=== PATIENT | female | born 1945 | race Caucasian/White ===

== ENCOUNTER → 2016-09-24 | Outpatient (CLI) | payer MEDICARE, BC ==
--- NOTE | 2016-09-24 10:32 | CT ---
EXAMINATION TYPE: CT chest wo con DATE OF EXAM: 09/24/2016 COMPARISON: 09/27/2015 HISTORY: 70-year-old female history of Lung CA TECHNIQUE: Contiguous axial scanning of the chest without IV contrast. Coronal and sagittal reconstru ctions performed. CT DLP: 162.3 mGycm Automated exposure control for dose reduction was used. FINDINGS: Stable ovoid calcification in the right axilla and some calcification or surgical material deeper in the right axilla likely relate to into prior breast cancer treatment. The heart is upper limits of normal in size without pericardial effusion. Coronary vessel calcificati ons are present in remarkable for coronary artery disease. Aorta is normal-caliber with a conventional arch vessel branching anatomy. Lack of IV contrast limits assessment of the mediastinal and hilar structures. No obvious lymphadenop athy seen. Of enlarged lymph nodes in the right hilum be difficult to exclude. There is chronic consolidation and volume loss involving the left upper lobe and scattered paraseptal emphysematous change. Some patchy atelectasis at the left base and along the dependent portions of t he lungs. There is new rounded area of consolidation within the anterior right upper lobe abutting the mediasti num measuring 3.6 cm wide by 4.0 cm AP by 4.4 cm craniocaudal. No pleural effusion. Visualized upper abdomen shows stable calcified granuloma in the spleen. Cholecystectomy clips. Bones: No osseous destructive process. Degenerative changes at the right shoulder. Suggestion of old healed fracture deformities involving a few of the right lateral ribs. Stable mild compression deformity of the T3 vertebral body. IMPRESSION: 1. COPD WITH CHRONIC VOLUME LOSS/POSTTREATMENT CHANGE INVOLVING THE LEFT UPPER LOBE. 2. NEW 4.4 CM MEDIAL RIGHT UPPER LOBE MASSLIKE OPACITY. IN THE ABSENCE OF INFECTIOUS SIGNS/SYMPTOMS F INDINGS ARE HIGHLY SUSPICIOUS FOR A NEW LUNG CANCER. FURTHER WORKUP RECOMMENDED.
--- NOTE | 2016-09-24 10:48 | CT ---
EXAMINATION TYPE: CT brain wo con DATE OF EXAM: 09/24/2016 COMPARISON: 02/22/2012 HISTORY: Dizziness TECHNIQUE: Examination was done in axial plane without intravenous contrast. Coronal and sagittal r econstructions performed. CT DLP: 981.7 mGycm Automated exposure control for dose reduction was used. FINDINGS: A calcified 8 mm extra-axial lesion along the right paramedian frontoparietal junction is stable to p erhaps 1 mm larger. No associated mass effect. There is slight age related cerebral atrophy. No evidence for acute intracranial hemorrhage, acute ischemic change, mass effect, midline shift, or extra-axial fluid collection. No hydrocephalus. No effacement of cerebral sulci or basal subarachnoid cisterns. Griffith-white matter differentiation is maintained. Paranasal sinuses and mastoid air cells are pneumatized. Orbits and globes are intact. IMPRESSION: 1. No acute intracranial abnormality seen. 2. 8 mm extra-axial calcification along the right paramedian frontoparietal junction is overall stabl e, possibly a millimeter larger from 2012. A small meningioma is suspected.
== END | disposition home or self-care (01) ==
LOC: RADCTMAIN 09:20
PROVIDERS: ATTEND Family Medicine
DX: J44.9 Chronic obstructive pulmonary disease, unspecified (principal); G93.89 Other specified disorders of brain; R04.0 Epistaxis; R19.8 Other specified symptoms and signs involving the digestive system and abdomen; Z85.118 Personal history of other malignant neoplasm of bronchus and lung; Z98.890 Other specified postprocedural states
CPT/HCPCS: 70450; 71250

== ENCOUNTER 2016-10-12 21:23 | Inpatient (IN) | payer MEDICARE, BC ==
[2016-10-12] MEDS ORDERED: SODIUM CHLORIDE 0.9% 1,000 ML IV STA (22:03)
[2016-10-12] MEDS ORDERED: SODIUM CHLORIDE 0.9% 500 ML IV STA (22:03)
--- NOTE | 2016-10-12 22:08 | ED ---
General Adult HPI - General Chief complaint: Recheck/Abnormal Lab/Rx Stated complaint: Abnormal labs Time Seen by Provider: 10/12/16 21:53 Source: patient Mode of arrival: ambulatory Limitations: no limitations - History of Present Illness Initial comments: This 62-year-old white female presents with daughter with the complaint of having some fatigue recently. She does have a history of lung cancer which was treated 16 years ago and has been in remission. The fatigue has been present over the past month or so and she has been following up with her primary care physician as well as Dr. Cardona from oncology. She had a recent computed tomography scan which may show new cancer versus chronic pulmonary changes per daughter. The patient has had approximately 15 pound weight loss over the past 3 months. She has been eating and drinking well. She had blood work done today by her oncologist and they called and told her to come to the ER as her magnesium was low and her potassium was high. She does complain of occasional slight shortness of breath but no chest pain. She denies any leg pain or swelling. She is on Coumadin for history of previous DVTs. She does have a history of 2 cardiac stents as well. No other complaints or modifying factors. No fevers or chills. - Related Data Home Medications Medication Instructions Recorded Confirmed Fenofibrate 160 mg PO HS 11/27/14 10/12/16 Multivitamins, Thera [Multivitamin 1 tab PO HS 11/27/14 10/12/16 (formulary)] PARoxetine HCL 30 mg PO HS 11/27/14 10/12/16 Pantoprazole Sodium 40 mg PO DAILY 11/27/14 10/12/16 Simvastatin [Zocor] 20 mg PO HS 11/27/14 10/12/16 Krill/Om-3/Dha/Epa/Phospho/Ast 1 cap PO DAILY 09/16/15 10/12/16 [[place]-3 Krill Oil 300 mg Sfgl] Lisinopril [Zestril] 10 mg PO DAILY 09/16/15 10/12/16 Vit C/E/Zn/Coppr/Lutein/Zeaxan 1 cap PO BID 09/16/15 10/12/16 [Preservision Areds 2 Softgel] Warfarin Sodium 2.5 mg PO DAILY 09/26/15 10/12/16 sitaGLIPtin PHOSPHATE [Januvia] 100 mg PO DAILY 09/26/15 10/12/16 Atenolol [Tenormin] 25 mg PO BID 10/12/16 10/12/16 Calcium Carbonate [Calcium] 1,200 mg PO DAILY 10/12/16 10/12/16 Cholecalciferol [Vitamin D3] 1,000 unit PO HS 10/12/16 10/12/16 Magnesium Gluconate [Magonate] 500 mg PO BID 10/12/16 10/12/16 Allergies Allergy/AdvReac Type Severity Reaction Status Date / Time Iodinated Contrast- Oral and Allergy Severe Anaphylaxis Verified 10/12/16 21:35 IV Dye [Iodinated Contrast Media - IV Dye] codeine Allergy Rash/Hives Verified 10/12/16 21:48 metaxalone [From Skelaxin] Allergy Rash/Hives Verified 10/12/16 21:48 oxycodone HCl [From Percocet] Allergy Rash/Hives Verified 10/12/16 21:48 clopidogrel bisulfate AdvReac Headache Verified 10/12/16 21:48 [From Plavix] Review of Systems ROS Statement: Those systems with pertinent positive or pertinent negative responses have been documented in the HPI. ROS Other: All systems not noted in ROS Statement are negative. 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 Date of last positivie culture/infection: 2011 MDRO Source:: leg Past Surgical History: Adenoidectomy, Breast Surgery, Cholecystectomy, Heart Catheterization With Stent, Hysterectomy, Tonsillectomy Additional Past Surgical History / Comment(s): yamilex filter, mediastinoscopy, cyst removed from rt breast, gene leg surgery for thorn removal , implantable device for paralyzed vocal cord Past Anesthesia/Blood Transfusion Reactions: No Reported Reaction Date of Last Stent Placement:: 05/16/2007 Past Psychological History: No Psychological Hx Reported Smoking Status: Current every day smoker Past Alcohol Use History: None Reported Past Drug Use History: None Reported - Past Family History Father History Unknown: Yes Additional Family Medical History / Comment(s): multiple sclreosis and heart disease. after heart cath at age 49 Mother History Unknown: Yes Family Medical History: Diabetes Mellitus, Hyperlipidemia, Hypertension Additional Family Medical History / Comment(s): heart disease Sister(s) History Unknown: Yes Family Medical History: Cancer Additional Family Medical History / Comment(s): breast Cancer. Multiple sclreosis General Exam - General Exam Comments Initial Comments: GENERAL: The patient is well nourished and well hydrated. VITAL SIGNS: Heart rate, blood pressure, respiratory rate reviewed as recorded in nurse's notes. EYES: Pupils are round and reactive. Extraocular movements are intact. No conjunctival / lid redness or swelling. ENT: No external evidence of injury, swelling, or ecchymosis. Airway is patent. Throat is clear. NECK: Nontender. No swelling or evidence of injury. No subcutaneous emphysema. Trachea is midline. No thyroid mass. HEART: Regular rate and rhythm. Good peripheral pulses. LUNGS/CHEST: Breath sounds clear and equal bilaterally. No rales, rhonchi, or wheezes. No ecchymosis, subcutaneous emphysema, or tenderness. ABDOMEN: Abdomen soft without tenderness. No palpable masses or organomegaly. No peritoneal signs. No abdominal wall swelling or ecchymosis. EXTREMITIES: No extremity tenderness. Normal muscle tone and function. No thoracolumbar tenderness. NEUROLOGIC: Sensation is grossly intact. Cranial nerve exam reveals face is symmetrical, tongue is midline, speech is clear. SKIN: No abrasions or ecchymosis is noted. No induration or masses noted. PSYCHIATRIC: Alert and oriented. Appropriate behavior and judgment. Limitations: no limitations Course Vital Signs 10/12/16 10/12/16 10/12/16 21:33 22:47 23:17 Temperature 98.8 F Pulse Rate 60 74 79 Respiratory 16 18 18 Rate Blood Pressure 102/49 141/61 140/63 O2 Sat by Pulse 98 97 96 Oximetry 10/12/16 23:48 Temperature Pulse Rate 82 Respiratory 18 Rate Blood Pressure 127/62 O2 Sat by Pulse 97 Oximetry Medical Decision Making - Medical Decision Making The patient was seen and examined. All diagnostics were reviewed. The EKG shows a normal sinus rhythm at a rate of [address]-T wave changes noted. The computed tomography scan from earlier this month of the thorax does show evidence of a new suspicious mass in the right upper lobe of the lung. The laboratory from earlier today shows a low magnesium at 0.7 and a high potassium at 6.2. The laboratories repeated. She does receive 2 g of magnesium intravenously as well as some IV fluids. Her urine came back showing a slight urinary infection and she receives some Rocephin intravenously. The repeat potassium is decreased at 5.8 but the magnesium is also decreased at 0.4. The patient's INR is elevated at 6.0. It is felt as though she would require admission to the hospital for these significant electrolyte abnormalities. The chest x-ray shows a 5 cm right upper lobe mass. This is consistent with previous mass noted on computed tomography scan 2 weeks ago which showed a 4 cm mass. This is suspicious for malignancy. The patient and family are informed of the results. The case is discussed with primary care physician and he is agreeable to admission. - Lab Data Result diagrams: 10/12/16 22:10 10/12/16 22:10 Lab Results 10/12/16 10/12/16 10/12/16 Range/Units 22:10 22:10 22:10 WBC 10.0 (3.8-10.6) k/uL RBC 4.21 (3.80-5.40) m/uL Hgb 11.7 (11.4-16.0) gm/dL Hct 37.4 (34.0-46.0) % MCV 88.9 (80.0-100.0) fL MCH 27.8 (25.0-35.0) pg MCHC 31.2 (31.0-37.0) g/dL RDW 15.5 (11.5-15.5) % Plt Count 219 (150-450) k/uL Neutrophils % 69 % Lymphocytes % 19 % Monocytes % 8 % Eosinophils % 2 % Basophils % 1 % Neutrophils # 6.9 (1.3-7.7) k/uL Lymphocytes # 1.9 (1.0-4.8) k/uL Monocytes # 0.8 (0-1.0) k/uL Eosinophils # 0.2 (0-0.7) k/uL Basophils # 0.1 (0-0.2) k/uL PT 61.6 H (9.0-12.0) sec INR 6.1 H* (<1.2) APTT 29.9 (22.0-30.0) sec Sodium 136 L (137-145) mmol/L Potassium 5.8 H (3.5-5.1) mmol/L Chloride 107 (98-107) mmol/L Carbon Dioxide 21 L (22-30) mmol/L Anion Gap 8 mmol/L BUN 30 H (7-17) mg/dL Creatinine 0.95 (0.52-1.04) mg/dL Est GFR (MDRD) Af Amer >60 (>60 ml/min/1.73 sqM) Est GFR (MDRD) Non-Af 58 (>60 ml/min/1.73 sqM) Glucose 98 (74-99) mg/dL Calcium 10.8 H (8.4-10.2) mg/dL Phosphorus 2.8 (2.5-4.5) mg/dL Magnesium 0.4 L* (1.6-2.3) mg/dL Total Bilirubin 0.4 (0.2-1.3) mg/dL AST 33 (14-36) U/L ALT 26 (9-52) U/L Alkaline Phosphatase 61 (38-126) U/L Total Protein 6.6 (6.3-8.2) g/dL Albumin 3.7 (3.5-5.0) g/dL Urine Color Urine Appearance (Clear) Urine pH (5.0-8.0) Ur Specific [place] (1.001-1.035) Urine Protein (Negative) Urine Glucose (UA) (Negative) Urine Ketones (Negative) Urine Blood (Negative) Urine Nitrite (Negative) Urine Bilirubin (Negative) Urine Urobilinogen (<2.0) mg/dL Ur Leukocyte Esterase (Negative) Urine RBC (0-5) /hpf Urine WBC (0-5) /hpf Ur Squamous Epith Cells (0-4) /hpf Urine Mucus (None) /hpf 10/12/16 Range/Units 22:35 WBC (3.8-10.6) k/uL RBC (3.80-5.40) m/uL Hgb (11.4-16.0) gm/dL Hct (34.0-46.0) % MCV (80.0-100.0) fL MCH (25.0-35.0) pg MCHC (31.0-37.0) g/dL RDW (11.5-15.5) % Plt Count (150-450) k/uL Neutrophils % % Lymphocytes % % Monocytes % % Eosinophils % % Basophils % % Neutrophils # (1.3-7.7) k/uL Lymphocytes # (1.0-4.8) k/uL Monocytes # (0-1.0) k/uL Eosinophils # (0-0.7) k/uL Basophils # (0-0.2) k/uL PT (9.0-12.0) sec INR (<1.2) APTT (22.0-30.0) sec Sodium (137-145) mmol/L Potassium (3.5-5.1) mmol/L Chloride (98-107) mmol/L Carbon Dioxide (22-30) mmol/L Anion Gap mmol/L BUN (7-17) mg/dL Creatinine (0.52-1.04) mg/dL Est GFR (MDRD) Af Amer (>60 ml/min/1.73 sqM) Est GFR (MDRD) Non-Af (>60 ml/min/1.73 sqM) Glucose (74-99) mg/dL Calcium (8.4-10.2) mg/dL Phosphorus (2.5-4.5) mg/dL Magnesium (1.6-2.3) mg/dL Total Bilirubin (0.2-1.3) mg/dL AST (14-36) U/L ALT (9-52) U/L Alkaline Phosphatase (38-126) U/L Total Protein (6.3-8.2) g/dL Albumin (3.5-5.0) g/dL Urine Color Yellow Urine Appearance Clear (Clear) Urine pH 5.5 (5.0-8.0) Ur Specific [place] 1.017 (1.001-1.035) Urine Protein Negative (Negative) Urine Glucose (UA) Negative (Negative) Urine Ketones Negative (Negative) Urine Blood Trace H (Negative) Urine Nitrite Negative (Negative) Urine Bilirubin Negative (Negative) Urine Urobilinogen <2.0 (<2.0) mg/dL Ur Leukocyte Esterase Moderate H (Negative) Urine RBC 3 (0-5) /hpf Urine WBC 8 H (0-5) /hpf Ur Squamous Epith Cells 1 (0-4) /hpf Urine Mucus Rare H (None) /hpf Disposition Clinical Impression: Hypomagnesemia, Hyperkalemia, Fatigue, Weight loss, Lung mass, History of lung cancer, Coagulopathy, Dyspnea Disposition: ADMITTED IP TO THIS [facility] Condition: Fair Time of Disposition: 23:51 Decision Date: 10/12/16 Decision Time: 23:51
[2016-10-12 22:26] LABS: Basophils # (A) 0.1 k/uL (0-0.2); Basophils % (A) 1 %; CH 28.2; CHCM 31.9; Eosinophils # (A) 0.2 k/uL (0-0.7); Eosinophils % (A) 2 %; HCT 37.4 % (34.0-46.0); HDW 2.42; HGB 11.7 gm/dL (11.4-16.0); Luc # (Auto) 0.22; Luc % (Auto) 2; Lymphocytes # (A) 1.9 k/uL (1.0-4.8); Lymphocytes % (A) 19 %; MCH 27.8 pg (25.0-35.0); MCHC 31.2 g/dL (31.0-37.0); MCV 88.9 fL (80.0-100.0); Mean Platelet Volume 9.5; Monocytes # (A) 0.8 k/uL (0-1.0); Monocytes % (A) 8 %; Neutrophils # (A) 6.9 k/uL (1.3-7.7); Neutrophils % (A) 69 %; RBC 4.21 m/uL (3.80-5.40); RDW 15.5 % (11.5-15.5); WBC (Perox) 11.08
[2016-10-12] MEDS: MAGNESIUM SULFATE-D5W PMX 1 GM in DEXTROSE/WATER 1 100ML.BAG IVPB SCH ×2 (22:28→23:47)
[2016-10-12 22:35] LABS: ALT 26 U/L (9-52); AST 33 U/L (14-36); Alkaline Phosphatase 61 U/L (38-126); Anion Gap 8 mmol/L; Blood Urea Nitrogen 30 mg/dL (7-17); Calcium 10.8 mg/dL (8.4-10.2); Carbon Dioxide 21 mmol/L (22-30); Chloride 107 mmol/L (98-107); Glucose 98 mg/dL (74-99); Non-African American GFR(MDRD) 58 (>60 ml/min/1.73 sqM); Phosphorous 2.8 mg/dL (2.5-4.5); Potassium 5.8 mmol/L (3.5-5.1); Sodium 136 mmol/L (137-145); Total Bilirubin 0.4 mg/dL (0.2-1.3); Total Protein 6.6 g/dL (6.3-8.2)
[2016-10-12 22:37] LABS: Magnesium 0.4 mg/dL (1.6-2.3)
[2016-10-12 22:45] LABS: Partial Thromboplastin Time 29.9 sec (22.0-30.0); Prothrombin Time 61.6 sec (9.0-12.0)
[2016-10-12 22:50] LABS: INR 6.1 (<1.2)
[2016-10-12 22:51] LABS: Appearance,Urine Clear (Clear); Bilirubin,Urine Negative (Negative); Glucose,Urine (UA) Negative (Negative); Ketones,Urine Negative (Negative); Leukocyte Esterase,Urine Moderate (Negative); Mucus,Urine Rare /hpf; Nitrite,Urine Negative (Negative); PH, Urine 5.5 (5.0-8.0); Particle Count 2269; Protein,Urine Negative (Negative); RBC,Urine 3 /hpf (0-5); Specific Gravity,Urine 1.017 (1.001-1.035); Squamous Epithelial Cell,Urine 1 /hpf (0-4); UA Billing (MACRO vs. MICRO) MICRO; Urobilinogen,Urine <2.0 mg/dL (<2.0); WBC,Urine 8 /hpf (0-5)
--- NOTE | 2016-10-12 23:33 | XR ---
EXAM: XR Chest, 2 Views CLINICAL HISTORY: Reason: Weakness Hx. of COPD, Heart Cath with stents. Pt. c/o dizziness and weakness, abnormal lab levels - Magnesium and potassium. Hx of Lung CA. TECHNIQUE: Frontal and lateral views of the chest. COMPARISON: X-ray abdominal series from 09/26/[address] chest 09/24/2016 FINDINGS: Lungs: Approximately 5 cm ovoid right upper lobe paramediastinal mass corresponds to mass seen on the recent chest CT. Left upper lobe paramediastinal chronic changes with atelectasis and bronchiectasis. Better seen on the CT. Rest of the lungs appear clear. Pleural space: Unremarkable. No pneumothorax. Heart: Coronary calcification or stent. Normal heart size. Mediastinum: See above. Bones/joints: Unremarkable. Soft tissues: Ovoid calcified lesions in the right axilla, stable since the prior x-ray and CT. IMPRESSION: 1. Approximately 5 cm ovoid right upper lobe paramediastinal mass corresponds to mass seen on the recent chest CT. Worrisome for malignancy. Correlate with recent workup. 2. No evidence of acute abnormality
[2016-10-12] MEDS ORDERED: ONDANSETRON 4 MG/2 ML VIAL IVP PRN (23:52)
[2016-10-13] MEDS: ACETAMINOPHEN TAB 325 MG TAB PO PRN ×2 (02:01→20:19)
[2016-10-13] MEDS ORDERED: PHYTONADIONE ORAL 5 MG/5 ML ORAL.SYRG PO STA (02:10)
[2016-10-13 06:15] LABS: Anion Gap 6 mmol/L; Blood Urea Nitrogen 24 mg/dL (7-17); Calcium 10.6 mg/dL (8.4-10.2); Carbon Dioxide 22 mmol/L (22-30); Chloride 110 mmol/L (98-107); Glucose 97 mg/dL (74-99); Magnesium 1.3 mg/dL (1.6-2.3); Non-African American GFR(MDRD) >60 (>60 ml/min/1.73 sqM); Sodium 138 mmol/L (137-145)
[2016-10-13 06:16] LABS: Potassium 5.2 mmol/L (3.5-5.1)
[2016-10-13 06:17] LABS: Prothrombin Time 52.9 sec (9.0-12.0)
[2016-10-13 06:30] LABS: INR 5.3 (<1.2)
[2016-10-13] MEDS: LISINOPRIL 10 MG TAB PO SCH (08:34)
[2016-10-13] MEDS: VIT A,C & E-LUTEIN-MINERALS 1 EACH TAB PO SCH ×2 (08:34→20:19)
[2016-10-13] MEDS: LINAGLIPTIN 5 MG TABLET PO SCH (08:34)
[2016-10-13] MEDS: ATENOLOL 25 MG TAB PO SCH ×2 (08:34→20:19)
[2016-10-13] MEDS: CALCIUM CARBONATE 500 MG CHEWABLE PO SCH (08:34)
[2016-10-13] MEDS: MAGNESIUM OXIDE 400 MG TAB PO SCH ×2 (08:34→20:19)
[2016-10-13] MEDS ORDERED: NON-FORMULARY DRUG (Krill/Om-3/Dha/Epa/Phospho/Ast [Omega-3 Krill Oil 300 Mg Sfgl] 1 CAP) PO SCH (09:00)
[2016-10-13] MEDS ORDERED: PHYTONADIONE 5 MG in SODIUM CHLORIDE 0.9% 50 ML IVPB STA (09:11)
--- NOTE | 2016-10-13 09:46 | P.HPIM ---
History of Present Illness H&P Date: 10/13/16 Chief Complaint: Abnormal Labs 70-year-old female who was advised to come to the emergency room yesterday due to abnormal blood work that she had done at her oncology office. The patient has a history of lung cancer and was treated aggressively 16 years ago. Over the past 3 months she has lost 15 pounds, though she says her appetite is good and has been eating and drinking well. She has also been feeling fatigued. The patient is on Coumadin for history of DVTs. Her INR on admission was 6.0. Her magnesium was 0.7 and her potassium was 6.2. Her urinalysis completed in the ER showed the possibility of UTI and the patient received Rocephin. The patient had a chest x-ray completed which shows a 5 cm mass in the upper right corner which has increased in size from 2 weeks ago when it measured 4 cm. Currently the patient states she is feeling well and denies any shortness of breath or chest pain. She is tolerating an oral diet without complaints of nausea or vomiting. Review of Systems GENERAL: Patient denies fever, chills, weight gain. Positive for weight loss of 15 pounds. RESPIRATORY: Denies dyspnea, cough, sputum production, or hemoptysis. CARDIOVASCULAR: Denies chest pain, pressure, palpitations, claudication, or arrhythmias. GI: Denies abdominal pain, diarrhea, incontinence, heartburn, nausea, constipation, or blood in the stool. : Denies urinary frequency, burning, dysuria, or cloudy urine. Denies blood in the urine. MUSCULOSKELETAL: Denies pain or tenderness. Denies cramps, swelling, or decreased range of motion. 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 Date of last positivie culture/infection: 2011 MDRO Source:: leg Past Surgical History: Adenoidectomy, Breast Surgery, Cholecystectomy, Heart Catheterization With Stent, Hysterectomy, Tonsillectomy Additional Past Surgical History / Comment(s): yamilex filter, mediastinoscopy, cyst removed from rt breast, gene leg surgery for thorn removal , implantable device for paralyzed vocal cord Past Anesthesia/Blood Transfusion Reactions: No Reported Reaction Date of Last Stent Placement:: 05/16/2007 Past Psychological History: No Psychological Hx Reported Smoking Status: Current every day smoker Past Alcohol Use History: None Reported Additional Past Alcohol Use History / Comment(s): smokes a pack a day. Lives alone Past Drug Use History: None Reported - Past Family History Father History Unknown: Yes Additional Family Medical History / Comment(s): multiple sclreosis and heart disease. after heart cath at age 49 Mother History Unknown: Yes Family Medical History: Diabetes Mellitus, Hyperlipidemia, Hypertension Additional Family Medical History / Comment(s): heart disease Sister(s) History Unknown: Yes Family Medical History: Cancer Additional Family Medical History / Comment(s): breast Cancer. Multiple sclreosis Medications and Allergies Home Medications Medication Instructions Recorded Confirmed Type Fenofibrate 160 mg PO HS 11/27/14 10/12/16 History Multivitamins, Thera [Multivitamin 1 tab PO HS 11/27/14 10/12/16 History (formulary)] PARoxetine HCL 30 mg PO HS 11/27/14 10/12/16 History Pantoprazole Sodium 40 mg PO DAILY 11/27/14 10/12/16 History Simvastatin [Zocor] 20 mg PO HS 11/27/14 10/12/16 History Krill/Om-3/Dha/Epa/Phospho/Ast 1 cap PO DAILY 09/16/15 10/12/16 History [[place]-3 Krill Oil 300 mg Sfgl] Lisinopril [Zestril] 10 mg PO DAILY 09/16/15 10/12/16 History Vit C/E/Zn/Coppr/Lutein/Zeaxan 1 cap PO BID 09/16/15 10/12/16 History [Preservision Areds 2 Softgel] Warfarin Sodium 2.5 mg PO DAILY 09/26/15 10/12/16 History sitaGLIPtin PHOSPHATE [Januvia] 100 mg PO DAILY 09/26/15 10/12/16 History Atenolol [Tenormin] 25 mg PO BID 10/12/16 10/12/16 History Calcium Carbonate [Calcium] 1,200 mg PO DAILY 10/12/16 10/12/16 History Cholecalciferol [Vitamin D3] 1,000 unit PO HS 10/12/16 10/12/16 History Magnesium Gluconate [Magonate] 500 mg PO BID 10/12/16 10/12/16 History Allergies Allergy/AdvReac Type Severity Reaction Status Date / Time Iodinated Contrast- Oral and Allergy Severe Anaphylaxis Verified 10/12/16 21:35 IV Dye [Iodinated Contrast Media - IV Dye] codeine Allergy Rash/Hives Verified 10/12/16 21:48 metaxalone [From Skelaxin] Allergy Rash/Hives Verified 10/12/16 21:48 oxycodone HCl [From Percocet] Allergy Rash/Hives Verified 10/12/16 21:48 clopidogrel bisulfate AdvReac Headache Verified 10/12/16 21:48 [From Plavix] Physical Exam Vitals: Vital Signs Temp Pulse Pulse Resp BP BP Pulse Ox 10/13/16 03:00 18 10/13/16 01:24 97.4 F L 81 16 144/62 98 10/13/16 00:54 98.6 F 77 18 160/70 96 10/12/16 23:48 82 18 127/62 97 10/12/16 23:17 79 18 140/63 96 10/12/16 22:47 74 18 141/61 97 10/12/16 21:33 98.8 F 60 16 102/49 98 Intake and Output 10/12/16 10/13/16 10/13/16 22:59 06:59 14:59 Intake Total 180 Balance 180 Intake: Oral 180 Other: # Voids 0 Weight 52.617 kg 52.4 kg GENERAL: Alert and oriented. Appears in no acute distress. Pleasant. RESPIRATORY: Lungs clear bilaterally. No use of accessory muscles. Patient maintaining oxygen saturation greater than 92%. CARDIOVASCULAR: S1 and S2 noted. No murmurs auscultated. No JVD noted. EXTREMITIES: No edema noted. Palpable pedal pulses +2. ABDOMEN: No distention noted. Abdomen soft and round. Normal active bowel sounds auscultated 4 quadrants. No pain or tenderness noted upon palpation. Results CBC & Chem 7: 10/12/16 22:10 10/13/16 05:32 Labs: Abnormal Lab Results - Last 24 Hours (Table) 10/12/16 10/12/16 10/12/16 Range/Units 22:10 22:10 22:35 PT 61.6 H (9.0-12.0) sec INR 6.1 H* (<1.2) Sodium 136 L (137-145) mmol/L Potassium 5.8 H (3.5-5.1) mmol/L Chloride (98-107) mmol/L Carbon Dioxide 21 L (22-30) mmol/L BUN 30 H (7-17) mg/dL Calcium 10.8 H (8.4-10.2) mg/dL Magnesium 0.4 L* (1.6-2.3) mg/dL Urine Blood Trace H (Negative) Ur Leukocyte Esterase Moderate H (Negative) Urine WBC 8 H (0-5) /hpf Urine Mucus Rare H (None) /hpf 10/13/16 10/13/16 Range/Units 05:32 05:32 PT 52.9 H (9.0-12.0) sec INR 5.3 H* (<1.2) Sodium (137-145) mmol/L Potassium 5.2 H (3.5-5.1) mmol/L Chloride 110 H (98-107) mmol/L Carbon Dioxide (22-30) mmol/L BUN 24 H (7-17) mg/dL Calcium 10.6 H (8.4-10.2) mg/dL Magnesium 1.3 L (1.6-2.3) mg/dL Urine Blood (Negative) Ur Leukocyte Esterase (Negative) Urine WBC (0-5) /hpf Urine Mucus (None) /hpf Thrombosis Risk Factor Assmnt - Choose All That Apply Any of the Below Risk Factors Present?: Yes Each Factor Represents 1 point: Abnormal pulmonary function (COPD) Each Risk Factor Represents 2 Points: Age 61-74 years Each Risk Factor Represents 3 Points: History of DVT/PE Thrombosis Risk Factor Assessment Total Risk Factor Score: 6 Thrombosis Risk Factor Assessment Level: High Risk Assessment and Plan Plan: ASSESSMENT: 1. Hypomagnesemia, present on admission 2. Hyperkalemia, present on admission 3. Unintentional weight loss, 15 pounds within last 3 months 4. Right upper lobe lung mass, suspect malignancy 5. History of lung cancer 6. Coagulopathy, present on admission 7. History of DVT 8. History of coronary artery disease with stenting x 2 PLAN: -Replace magnesium: 4 g IV -Administer IV fluids at 100 mL an hour -5 mg vitamin K for INR of 5.3 -Consult dietary regarding weight loss -Monitor labs -GI prophylaxis: Patient receiving Protonix 40 mg daily -DVT prophylaxis: Not applicable due to coagulopathy -Repeat urinalysis and culture -Encourage oral intake -Oncology, Dr. Cardona, on consult due to lung mass. Appreciate recommendations and input. -Monitor vital signs and address as appropriate The above impression and plan of care have been discussed and directed by signing physician. Anna Uribe, nurse practitioner, acting as scribe for signing physician.
[2016-10-13] MEDS: PANTOPRAZOLE 40 MG TABLET PO SCH (10:14)
[2016-10-13] MEDS: MAGNESIUM SULFATE-D5W PMX 1 GM in DEXTROSE/WATER 1 100ML.BAG IVPB SCH ×4 (11:01→16:54)
[2016-10-13 18:55] LABS: Appearance,Urine Cloudy (Clear); Bacteria,Urine Rare /hpf; Bilirubin,Urine Negative (Negative); Glucose,Urine (UA) Negative (Negative); Ketones,Urine Negative (Negative); Leukocyte Esterase,Urine Negative (Negative); Nitrite,Urine Negative (Negative); PH, Urine 7.5 (5.0-8.0); Particle Count 7905; Protein,Urine Negative (Negative); Specific Gravity,Urine 1.007 (1.001-1.035); UA Billing (MACRO vs. MICRO) MICRO; Urobilinogen,Urine <2.0 mg/dL (<2.0)
[2016-10-13] MEDS: SODIUM CHLORIDE 0.9% 1,000 ML IV SCH ×2 (19:07→20:18)
[2016-10-13] MEDS: PARoxetine 10 MG TAB PO SCH (20:19)
[2016-10-13] MEDS: ATORVASTATIN 10 MG TAB PO SCH (20:19)
[2016-10-13] MEDS: MULTIVITAMINS, THERA 1 EACH TAB PO SCH (20:19)
[2016-10-13] MEDS: FENOFIBRATE 160 MG TAB PO SCH (20:19)
[2016-10-13] MEDS: CHOLECALCIFEROL 1,000 UNIT TAB PO SCH (20:19)
[2016-10-13 20:58] LABS: Glucose,Whole Blood 135 mg/dL (75-99)
--- NOTE | 2016-10-14 00:37 | P.CONS ---
History of Present Illness - Reason for Consult Consult date: 10/13/16 Lung mass, coagulopathy, electrolyte abnormality - History of Present Illness The patient is a 70-year-old lady, well known to our service. She follows with Dr. Cardona in the outpatient setting. She had a history of locally advanced non-small cell lung cancer diagnosed about 15 years ago. She was treated with concurrent chemoradiation, and has been in remission since. Computed tomography scan about a year ago, showed an opacity in the right upper lobe, that was somewhat suspicious but could not be defined further. She presented a few months ago, with complains of generally not feeling well, decreased appetite and slowly progressive weight loss. She had a computed tomography scan done 2 weeks ago, showing a 3.644.4 cm masslike consolidation in the right upper lobe. This was much more suspicious in appearance, compared to a year ago. A PET scan was scheduled for 10/15/16 , and the patient was to follow up with the pulmonary medicine for a biopsy. The patient continued to feel overall unwell, and progressively weak. She had labs done yesterday which showed an elevated potassium, as well as low magnesium of less than 1. She was therefore sent in to the emergency room and admitted for further management. Labs also showed elevated INR, greater than 6. (She has been on Coumadin, for extensive bilateral DVT, that was diagnosed with the time of her initial cancer diagnosis 15 years ago) she denied any obvious bleeding. She does have a chronic cough with generally whitish yellowish expectoration over the last several months. SHe has coughed up small amounts of blood over the last few days. Review of Systems Constitutional: Reports fatigue, Reports fever, Reports weakness, Reports weight loss Eyes: denies blurred vision, denies pain Ears: deny: decreased hearing, ear discharge, earache, tinnitus Ears, nose, mouth and throat: Denies headache, Denies sore throat Cardiovascular: Reports decreased exercise tolerance Respiratory: Reports cough with sputum, Reports hemoptysis Gastrointestinal: Denies abdominal pain, Denies diarrhea, Denies nausea, Denies vomiting Genitourinary: Denies dysuria, Denies hematuria Menstruation: Reports postmenopausal Musculoskeletal: Reports muscle weakness, Denies myalgias Integumentary: Denies pruritus, Denies rash Neurological: Reports weakness Psychiatric: Denies anxiety, Denies depression Endocrine: Reports fatigue, Reports weight change Hematologic/Lymphatic: Reports as per HPI 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 MDRO Source:: leg Past Surgical History: Adenoidectomy, Breast Surgery, Cholecystectomy, Heart Catheterization With Stent, Hysterectomy, Tonsillectomy Additional Past Surgical History / Comment(s): yamilex filter, mediastinoscopy, cyst removed from rt breast, gene leg surgery for thorn removal , implantable device for paralyzed vocal cord Past Anesthesia/Blood Transfusion Reactions: No Reported Reaction Date of Last Stent Placement:: 05/16/2007 Past Psychological History: No Psychological Hx Reported Smoking Status: Current every day smoker Past Alcohol Use History: None Reported Additional Past Alcohol Use History / Comment(s): smokes a pack a day. Lives alone Past Drug Use History: None Reported - Past Family History Father History Unknown: Yes Additional Family Medical History / Comment(s): multiple sclreosis and heart disease. after heart cath at age 49 Mother History Unknown: Yes Family Medical History: Diabetes Mellitus, Hyperlipidemia, Hypertension Additional Family Medical History / Comment(s): heart disease Sister(s) History Unknown: Yes Family Medical History: Cancer Additional Family Medical History / Comment(s): breast Cancer. Multiple sclreosis Medications and Allergies Home Medications Medication Instructions Recorded Confirmed Type Fenofibrate 160 mg PO HS 11/27/14 10/12/16 History Multivitamins, Thera [Multivitamin 1 tab PO HS 11/27/14 10/12/16 History (formulary)] PARoxetine HCL 30 mg PO HS 11/27/14 10/12/16 History Pantoprazole Sodium 40 mg PO DAILY 11/27/14 10/12/16 History Simvastatin [Zocor] 20 mg PO HS 11/27/14 10/12/16 History Krill/Om-3/Dha/Epa/Phospho/Ast 1 cap PO DAILY 09/16/15 10/12/16 History [[place]-3 Krill Oil 300 mg Sfgl] Lisinopril [Zestril] 10 mg PO DAILY 09/16/15 10/12/16 History Vit C/E/Zn/Coppr/Lutein/Zeaxan 1 cap PO BID 09/16/15 10/12/16 History [Preservision Areds 2 Softgel] Warfarin Sodium 2.5 mg PO DAILY 09/26/15 10/12/16 History sitaGLIPtin PHOSPHATE [Januvia] 100 mg PO DAILY 09/26/15 10/12/16 History Atenolol [Tenormin] 25 mg PO BID 10/12/16 10/12/16 History Calcium Carbonate [Calcium] 1,200 mg PO DAILY 10/12/16 10/12/16 History Cholecalciferol [Vitamin D3] 1,000 unit PO HS 10/12/16 10/12/16 History Magnesium Gluconate [Magonate] 500 mg PO BID 10/12/16 10/12/16 History Allergies Allergy/AdvReac Type Severity Reaction Status Date / Time Iodinated Contrast- Oral and Allergy Severe Anaphylaxis Verified 10/12/16 21:35 IV Dye [Iodinated Contrast Media - IV Dye] codeine Allergy Rash/Hives Verified 10/12/16 21:48 metaxalone [From Skelaxin] Allergy Rash/Hives Verified 10/12/16 21:48 oxycodone HCl [From Percocet] Allergy Rash/Hives Verified 10/12/16 21:48 clopidogrel bisulfate AdvReac Headache Verified 10/12/16 21:48 [From Plavix] Physical Exam Vitals: Vital Signs Temp Pulse Pulse Resp BP BP Pulse Ox 10/13/16 20:00 99.1 F 72 16 155/74 100 10/13/16 15:41 98.5 F 76 20 146/75 92 L 10/13/16 11:27 98.1 F 70 20 140/57 94 L 10/13/16 08:00 97.7 F 71 20 119/45 91 L 10/13/16 03:00 18 10/13/16 01:24 97.4 F L 81 16 144/62 98 10/13/16 00:54 98.6 F 77 18 160/70 96 Intake and Output 10/13/16 10/13/16 10/14/16 14:59 22:59 06:59 Intake Total 1130 Output Total 200 Balance 930 Intake: Intake, IV Titration 850 Amount Magnesium Sulfate-D5w Pmx 400 1 gm In Dextrose/Water 1 100ml.bag @ 100 mls/hr IVPB Q1H [facility] Rx#: [id number] Phytonadione 5 mg In 50 Sodium Chloride 0.9% 50 ml @ 100 mls/hr IVPB ONCE STA Rx#:[id number] Sodium Chloride 0.9% 1, 400 000 ml @ 100 mls/hr IV . Q10H [facility] Rx#:[id number] Oral 280 Output: Urine 200 Other: Voiding Method Toilet # Voids 0 0 Weight 52.4 kg Patient Weight 10/14/16 06:59 Weight 52.4 kg - Constitutional General appearance: no acute distress - EENT Eyes: EOMI, PERRLA ENT: hearing grossly normal, normal oropharynx - Neck Neck: no lymphadenopathy Thyroid: bilateral: normal size - Respiratory Respiratory: bilateral: CTA - Cardiovascular Rhythm: regular Heart sounds: normal: S1, S2 - Gastrointestinal General gastrointestinal: decreased bowel sounds, soft - Integumentary Integumentary: normal - Neurologic Neurologic: CNII-XII intact - Psychiatric Psychiatric: A&O x's 3, appropriate affect Results CBC & Chem 7: 10/12/16 22:10 10/13/16 05:32 Labs: Abnormal Lab Results - Last 24 Hours (Table) 10/13/16 10/13/16 10/13/16 Range/Units 05:32 05:32 16:40 PT 52.9 H (9.0-12.0) sec INR 5.3 H* (<1.2) Potassium 5.2 H (3.5-5.1) mmol/L Chloride 110 H (98-107) mmol/L BUN 24 H (7-17) mg/dL POC Glucose (mg/dL) (75-99) mg/dL Calcium 10.6 H (8.4-10.2) mg/dL Magnesium 1.3 L (1.6-2.3) mg/dL Urine Appearance Cloudy H (Clear) Urine Bacteria Rare H (None) /hpf Urine Yeast (Budding) Many H (None) /hpf 10/13/16 Range/Units 20:57 PT (9.0-12.0) sec INR (<1.2) Potassium (3.5-5.1) mmol/L Chloride (98-107) mmol/L BUN (7-17) mg/dL POC Glucose (mg/dL) 135 H (75-99) mg/dL Calcium (8.4-10.2) mg/dL Magnesium (1.6-2.3) mg/dL Urine Appearance (Clear) Urine Bacteria (None) /hpf Urine Yeast (Budding) (None) /hpf Assessment and Plan (1) Lung mass Narrative/Plan: There has been definite clinical change, since computed tomography scan a year ago. This is suspicious for malignancy, most likely a new primary. The patient is to be seen by pulmonary medicine for a biopsy. The case was discussed with Dr. Pabon. He will be consulted to see, if the biopsy can be performed this admission, as the patient will be off Coumadin and her INR will need to be reversed anyway. A PET scan has been scheduled for 10/15/16 as an outpatient. Status: Acute (2) Hypomagnesemia Narrative/Plan: The patient denies any obvious cause. She is not on any diuretics, and has not been having diarrhea. She is on oral magnesium supplementation at home. She has had issues with low magnesium, often on, since about a year. Labs are improved with supplementation, magnesium greater than 1 g/dL this a.m. Continue supplementation as appropriate This could potentially be paraneoplastic. Status: Acute (3) Coagulopathy Narrative/Plan: Due to Coumadin, which the patient has been taking now for about 15 years. Coumadin will need to be held, and, coaguloopathy reversed, as the patient has been having some hemoptysis. Status: Acute
[2016-10-14] MEDS ORDERED: PHYTONADIONE 2 MG in SODIUM CHLORIDE 0.9% 50 ML IVPB STA (00:39)
[2016-10-14 02:15] LABS: Basophils # (A) 0.1 k/uL (0-0.2); Basophils % (A) 1 %; CH 28.1; CHCM 32.6; Eosinophils # (A) 0.3 k/uL (0-0.7); Eosinophils % (A) 3 %; HCT 33.9 % (34.0-46.0); HDW 2.41; HGB 10.8 gm/dL (11.4-16.0); Luc % (Auto) 3; Lymphocytes # (A) 1.4 k/uL (1.0-4.8); Lymphocytes % (A) 17 %; MCH 27.6 pg (25.0-35.0); MCHC 31.9 g/dL (31.0-37.0); MCV 86.5 fL (80.0-100.0); Mean Platelet Volume 9.5; Monocytes # (A) 0.6 k/uL (0-1.0); Monocytes % (A) 7 %; Neutrophils # (A) 5.4 k/uL (1.3-7.7); Neutrophils % (A) 69 %; RBC 3.91 m/uL (3.80-5.40); RDW 15.4 % (11.5-15.5); WBC 7.8 k/uL (3.8-10.6); WBC (Perox) 8.13
[2016-10-14 02:27] LABS: INR 1.3 (<1.2); Partial Thromboplastin Time 26.5 sec (22.0-30.0); Prothrombin Time 13.1 sec (9.0-12.0)
[2016-10-14 02:29] LABS: ALT 27 U/L (9-52); AST 19 U/L (14-36); Alkaline Phosphatase 75 U/L (38-126); Anion Gap 5 mmol/L; Blood Urea Nitrogen 23 mg/dL (7-17); Calcium 10.1 mg/dL (8.4-10.2); Carbon Dioxide 23 mmol/L (22-30); Chloride 109 mmol/L (98-107); Glucose 113 mg/dL (74-99); Non-African American GFR(MDRD) >60 (>60 ml/min/1.73 sqM); Potassium 5.3 mmol/L (3.5-5.1); Sodium 137 mmol/L (137-145); Total Bilirubin 0.3 mg/dL (0.2-1.3); Total Protein 5.9 g/dL (6.3-8.2)
[2016-10-14] MEDS: SODIUM CHLORIDE 0.9% 1,000 ML IV SCH ×4 (05:27→21:06)
[2016-10-14 05:57] LABS: Glucose,Whole Blood 111 mg/dL (75-99)
[2016-10-14] MEDS: PANTOPRAZOLE 40 MG TABLET PO SCH (06:01)
[2016-10-14] MEDS: ATENOLOL 25 MG TAB PO SCH ×2 (08:25→20:57)
[2016-10-14] MEDS: LINAGLIPTIN 5 MG TABLET PO SCH (08:25)
[2016-10-14] MEDS: VIT A,C & E-LUTEIN-MINERALS 1 EACH TAB PO SCH ×2 (08:25→20:58)
[2016-10-14] MEDS: MAGNESIUM OXIDE 400 MG TAB PO SCH ×2 (08:25→20:57)
[2016-10-14] MEDS: CALCIUM CARBONATE 500 MG CHEWABLE PO SCH (08:25)
[2016-10-14] MEDS: LISINOPRIL 10 MG TAB PO SCH (08:25)
[2016-10-14] MEDS ORDERED: SODIUM POLYSTYRENE SULFONATE 15 GM/60 ML BOTTLE PO STA (10:28)
--- NOTE | 2016-10-14 10:30 | P.CNPUL ---
History of Present Illness Consult date: 10/14/16 Reason for consult: lung mass History of present illness: The patient is a 70-year-old lady, well known to our service. She follows with Dr. Cardona in the outpatient setting. She had a history of locally advanced non-small cell lung cancer diagnosed about 15 years ago. She was treated with concurrent chemoradiation, and has been in remission since. Computed tomography scan about a year ago, showed an opacity in the right upper lobe, that was somewhat suspicious but could not be defined further. She presented a few months ago, with complains of generally not feeling well, decreased appetite and slowly progressive weight loss. She had a computed tomography scan done 2 weeks ago, showing a 3.644.4 cm masslike consolidation in the right upper lobe. This was much more suspicious in appearance, compared to a year ago. A PET scan was scheduled for 10/15/16 The patient was originally hospitalized for electrode imbalance. She was found to have low potassium and low magnesium before replaced during this current hospitalization. Her weakness is improved. Her INR was elevated at was reversed in preparation for bronchoscopy. The patient also has history of extensive DVT that was diagnosed, of her lung cancer 15 years ago and she has been maintained on anticoagulation since. I believe she has an IVC filter in place. No hemoptysis. No chest pain at this point. She has noted some minimal hemoptysis and she attributed this to her anticoagulation. No cough and out of major blood clots. Review of Systems Constitutional: Reports fatigue, Reports weakness Eyes: denies blurred vision, denies bulging eye, denies decreased vision Ears: deny: decreased hearing, ear discharge, earache Ears, nose, mouth and throat: Denies headache, Denies sore throat Cardiovascular: Reports dyspnea on exertion, Reports shortness of breath Respiratory: Reports dyspnea, Reports hemoptysis Gastrointestinal: Denies abdominal pain, Denies diarrhea, Denies nausea, Denies vomiting Genitourinary: Denies dysuria, Denies hematuria Musculoskeletal: absent: ankle pain, ankle stiffness, ankle swelling Integumentary: Denies pruritus, Denies rash Neurological: Denies numbness, Denies weakness Past Medical History Past Medical History: Coronary Artery Disease (CAD), Cancer, COPD, Diabetes Mellitus, Deep Vein Thrombosis (DVT), GERD/Reflux, GI Bleed, Hyperlipidemia, Musculoskeletal Disorder, Pneumonia, Sleep Apnea/CPAP/BIPAP Additional Past Medical History / Comment(s): Non-small cell lung cancer diagnosed and treated 15 years ago with a concurrent chemoradiation therapy, COPD, 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 and the patient has an IVC filter in place, coronary artery disease with previous coronary intervention and stenting, hyperlipidemia, previous history of GI bleed, obstructive sleep apnea, acid reflux, 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, diabetes mellitus History of Any Multi-Drug Resistant Organisms: MRSA Date of last positivie culture/infection: 2011 MDRO Source:: leg Past Surgical History: Adenoidectomy, Breast Surgery, Cholecystectomy, Heart Catheterization With Stent, Hysterectomy, Tonsillectomy Additional Past Surgical History / Comment(s): yamilex filter, mediastinoscopy, cyst removed from rt breast, gene leg surgery for thorn removal , implantable device for paralyzed vocal cord Past Anesthesia/Blood Transfusion Reactions: No Reported Reaction Date of Last Stent Placement:: 05/16/2007 Past Psychological History: No Psychological Hx Reported Smoking Status: Current every day smoker Past Alcohol Use History: None Reported Additional Past Alcohol Use History / Comment(s): smokes a pack a day. Lives alone Past Drug Use History: None Reported - Past Family History Father History Unknown: Yes Additional Family Medical History / Comment(s): multiple sclreosis and heart disease. after heart cath at age 49 Mother History Unknown: Yes Family Medical History: Diabetes Mellitus, Hyperlipidemia, Hypertension Additional Family Medical History / Comment(s): heart disease Sister(s) History Unknown: Yes Family Medical History: Cancer Additional Family Medical History / Comment(s): breast Cancer. Multiple sclreosis Medications and Allergies Home Medications Medication Instructions Recorded Confirmed Type Fenofibrate 160 mg PO HS 11/27/14 10/12/16 History Multivitamins, Thera [Multivitamin 1 tab PO HS 11/27/14 10/12/16 History (formulary)] PARoxetine HCL 30 mg PO HS 11/27/14 10/12/16 History Pantoprazole Sodium 40 mg PO DAILY 11/27/14 10/12/16 History Simvastatin [Zocor] 20 mg PO HS 11/27/14 10/12/16 History Krill/Om-3/Dha/Epa/Phospho/Ast 1 cap PO DAILY 09/16/15 10/12/16 History [[place]-3 Krill Oil 300 mg Sfgl] Lisinopril [Zestril] 10 mg PO DAILY 09/16/15 10/12/16 History Vit C/E/Zn/Coppr/Lutein/Zeaxan 1 cap PO BID 09/16/15 10/12/16 History [Preservision Areds 2 Softgel] Warfarin Sodium 2.5 mg PO DAILY 09/26/15 10/12/16 History sitaGLIPtin PHOSPHATE [Januvia] 100 mg PO DAILY 09/26/15 10/12/16 History Atenolol [Tenormin] 25 mg PO BID 10/12/16 10/12/16 History Calcium Carbonate [Calcium] 1,200 mg PO DAILY 10/12/16 10/12/16 History Cholecalciferol [Vitamin D3] 1,000 unit PO HS 10/12/16 10/12/16 History Magnesium Gluconate [Magonate] 500 mg PO BID 10/12/16 10/12/16 History Allergies Allergy/AdvReac Type Severity Reaction Status Date / Time Iodinated Contrast- Oral and Allergy Severe Anaphylaxis Verified 10/12/16 21:35 IV Dye [Iodinated Contrast Media - IV Dye] codeine Allergy Rash/Hives Verified 10/12/16 21:48 metaxalone [From Skelaxin] Allergy Rash/Hives Verified 10/12/16 21:48 oxycodone HCl [From Percocet] Allergy Rash/Hives Verified 10/12/16 21:48 clopidogrel bisulfate AdvReac Headache Verified 10/12/16 21:48 [From Plavix] Physical Exam Vitals: Vital Signs Temp Pulse Resp BP Pulse Ox 10/14/16 08:00 99.1 F 76 20 128/59 94 L 10/14/16 03:58 98.2 F 66 16 149/62 97 10/13/16 23:57 98.6 F 71 16 154/66 94 L 10/13/16 20:00 99.1 F 72 16 155/74 100 10/13/16 15:41 98.5 F 76 20 146/75 92 L 10/13/16 11:27 98.1 F 70 20 140/57 94 L Intake and Output 10/13/16 10/14/16 10/14/16 22:59 06:59 14:59 Intake Total 800 800 Balance 800 800 Intake: IV 800 800 Sodium Chloride 0.9% 1, 800 800 000 ml @ 100 mls/hr IV . Q10H [facility] Rx#:[id number] Other: Voiding Method Toilet Toilet # Voids 0 Weight 53.4 kg The patient appeared well nourished and normally developed. Vital signs as documented. Head exam is unremarkable. No scleral icterus or corneal arcus noted. Neck is without jugular venous distension, thyromegaly, or carotid bruits. Carotid upstrokes are brisk bilaterally. Lungs are diminished breath sounds bilaterally. Cardiac exam reveals the PMI to be normally sized and situated. Rhythm is regular. First and second heart sounds normal. No murmurs, rubs or gallops. Abdominal exam reveals normal bowel sounds, no masses, no organomegaly and no aortic enlargement. Extremities are nonedematous and both femoral and pedal pulses are normal. Results - Laboratory Findings CBC and BMP: 10/14/16 02:00 10/14/16 02:00 PT/INR, D-dimer PT 13.1 sec (9.0-12.0) H 10/14/16 02:00 INR 1.3 (<1.2) H 10/14/16 02:00 Abnormal lab findings: Abnormal Labs 10/12/16 10/12/16 10/12/16 22:10 22:10 22:35 Hgb Hct PT 61.6 H INR 6.1 H* Sodium 136 L Potassium 5.8 H Chloride Carbon Dioxide 21 L BUN 30 H Glucose POC Glucose (mg/dL) Calcium 10.8 H Magnesium 0.4 L* Total Protein Albumin Urine Appearance Urine Blood Trace H Ur Leukocyte Esterase Moderate H Urine WBC 8 H Urine Bacteria Urine Mucus Rare H Urine Yeast (Budding) 10/13/16 10/13/16 10/13/16 05:32 05:32 16:40 Hgb Hct PT 52.9 H INR 5.3 H* Sodium Potassium 5.2 H Chloride 110 H Carbon Dioxide BUN 24 H Glucose POC Glucose (mg/dL) Calcium 10.6 H Magnesium 1.3 L Total Protein Albumin Urine Appearance Cloudy H Urine Blood Ur Leukocyte Esterase Urine WBC Urine Bacteria Rare H Urine Mucus Urine Yeast (Budding) Many H 10/13/16 10/14/16 10/14/16 20:57 02:00 02:00 Hgb 10.8 L Hct 33.9 L PT 13.1 H INR 1.3 H Sodium Potassium Chloride Carbon Dioxide BUN Glucose POC Glucose (mg/dL) 135 H Calcium Magnesium Total Protein Albumin Urine Appearance Urine Blood Ur Leukocyte Esterase Urine WBC Urine Bacteria Urine Mucus Urine Yeast (Budding) 10/14/16 10/14/16 02:00 05:56 Hgb Hct PT INR Sodium Potassium 5.3 H Chloride 109 H Carbon Dioxide BUN 23 H Glucose 113 H POC Glucose (mg/dL) 111 H Calcium Magnesium Total Protein 5.9 L Albumin 3.3 L Urine Appearance Urine Blood Ur Leukocyte Esterase Urine WBC Urine Bacteria Urine Mucus Urine Yeast (Budding) - Diagnostic Findings Chest x-ray: image reviewed CT scan - chest: image reviewed Assessment and Plan Plan: Assessment 1 right upper lobe mass measuring 4.4 x 4 x 3.6 cm in size. The findings are very suspicious for lung cancer. Possibly a second primary knowing that there has been a long lapse of more than 10 years between the initial lung cancer and the current findings. Tissue diagnosis will be needed. We'll recommend bronchoscopy and biopsy. The patient is experiencing some mild hemoptysis and we suspect there may be some endobronchial finding in addition. 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 Recommend biopsy. Would likely use the navigational system to direct our biopsy and this will be done in the operating room under anesthesia. We'll establish tissue diagnosis and plan further treatment.
--- NOTE | 2016-10-14 10:58 | P.PN ---
Subjective Principal diagnosis: 62-year-old female seen and examined this morning appetite. She was admitted due to abnormal blood work she had done on her oncology office. The patient is feeling well this morning with minimal complaints. She denies shortness of breath or chest pain. She is tolerating an oral diet without nausea or vomiting. She received 5 mg of vitamin K yesterday and her INR this morning is 1.3. Her potassium remains elevated at 5.3. Her magnesium was replaced yesterday and the repeat this morning is 1.9. A consultation was placed to pulmonary for a possible lung biopsy and to see if it could be correlated while the patient was admitted to hospital because she is currently off of her Coumadin. Objective - Vital Signs Vital signs: Vital Signs Temp 99.1 F 10/14/16 08:00 Pulse 76 10/14/16 08:00 Resp 20 10/14/16 08:00 BP 128/59 10/14/16 08:00 Pulse Ox 94 L 10/14/16 08:00 Intake & Output 10/13/16 10/14/16 10/14/16 18:59 06:59 18:59 Intake Total 1130 1600 Output Total 200 Balance 930 1600 Weight 52.4 kg 53.4 kg Intake: IV 1600 Sodium Chloride 0.9% 1, 1600 000 ml @ 100 mls/hr IV . Q10H [facility] Rx#:[id number] Intake, IV Titration 850 Amount Magnesium Sulfate-D5w Pmx 400 1 gm In Dextrose/Water 1 100ml.bag @ 100 mls/hr IVPB Q1H [facility] Rx#: [id number] Phytonadione 5 mg In 50 Sodium Chloride 0.9% 50 ml @ 100 mls/hr IVPB ONCE STA Rx#:[id number] Sodium Chloride 0.9% 1, 400 000 ml @ 100 mls/hr IV . Q10H [facility] Rx#:[id number] Oral 280 Output: Urine 200 Other: Voiding Method Toilet # Voids 0 0 - Exam GENERAL: Alert and oriented. Appears in no acute distress. Pleasant. RESPIRATORY: Lungs clear bilaterally. No use of accessory muscles. Patient maintaining oxygen saturation greater than 92%. CARDIOVASCULAR: S1 and S2 noted. No murmurs auscultated. No JVD noted. EXTREMITIES: No edema noted. Palpable pedal pulses +2. ABDOMEN: No distention noted. Abdomen soft and round. Normal active bowel sounds auscultated 4 quadrants. No pain or tenderness noted upon palpation. - Labs CBC & Chem 7: 10/14/16 02:00 10/14/16 02:00 Labs: Abnormal Lab Results - Last 24 Hours (Table) 10/13/16 10/13/16 10/14/16 Range/Units 16:40 20:57 02:00 Hgb 10.8 L (11.4-16.0) gm/dL Hct 33.9 L (34.0-46.0) % PT (9.0-12.0) sec INR (<1.2) Potassium (3.5-5.1) mmol/L Chloride (98-107) mmol/L BUN (7-17) mg/dL Glucose (74-99) mg/dL POC Glucose (mg/dL) 135 H (75-99) mg/dL Total Protein (6.3-8.2) g/dL Albumin (3.5-5.0) g/dL Urine Appearance Cloudy H (Clear) Urine Bacteria Rare H (None) /hpf Urine Yeast (Budding) Many H (None) /hpf 10/14/16 10/14/16 10/14/16 Range/Units 02:00 02:00 05:56 Hgb (11.4-16.0) gm/dL Hct (34.0-46.0) % PT 13.1 H (9.0-12.0) sec INR 1.3 H (<1.2) Potassium 5.3 H (3.5-5.1) mmol/L Chloride 109 H (98-107) mmol/L BUN 23 H (7-17) mg/dL Glucose 113 H (74-99) mg/dL POC Glucose (mg/dL) 111 H (75-99) mg/dL Total Protein 5.9 L (6.3-8.2) g/dL Albumin 3.3 L (3.5-5.0) g/dL Urine Appearance (Clear) Urine Bacteria (None) /hpf Urine Yeast (Budding) (None) /hpf Microbiology - Last 24 Hours (Table) 10/13/16 16:40 Urine Culture - Preliminary Urine,Voided Assessment and Plan Plan: ASSESSMENT: 1. Hypomagnesemia, present on admission, resolving 2. Hyperkalemia, present on admission 3. Unintentional weight loss, 15 pounds within last 3 months 4. Right upper lobe lung mass, suspect malignancy 5. History of lung cancer 6. Coagulopathy, present on admission, resolved 7. History of DVT 8. History of coronary artery disease with stenting x 2 PLAN: -Increase IV fluids 250 mL an hour -15 mg Kayexalate 1 dose for elevated potassium -Continue to hold Coumadin. Patient to have a possible lung biopsy -Await further recommendations from Dr. Pabon -Monitor labs -GI prophylaxis: Patient receiving Protonix 40 mg daily -DVT prophylaxis: Not applicable due to coagulopathy -Repeat urinalysis does not show UTI -Encourage oral intake -Oncology, Dr. Cardona, on consult due to lung mass. Appreciate recommendations and input. -Monitor vital signs and address as appropriate The above impression and plan of care have been discussed and directed by signing physician. Anna Uribe, nurse practitioner, acting as scribe for signing physician.
[2016-10-14 12:03] LABS: Glucose,Whole Blood 109 mg/dL (75-99)
[2016-10-14 16:35] LABS: Glucose,Whole Blood 109 mg/dL (75-99)
[2016-10-14] MEDS: FENOFIBRATE 160 MG TAB PO SCH (20:57)
[2016-10-14] MEDS: ATORVASTATIN 10 MG TAB PO SCH (20:57)
[2016-10-14] MEDS: CHOLECALCIFEROL 1,000 UNIT TAB PO SCH (20:57)
[2016-10-14] MEDS: MULTIVITAMINS, THERA 1 EACH TAB PO SCH (20:57)
[2016-10-14] MEDS: PARoxetine 10 MG TAB PO SCH (20:58)
[2016-10-14 20:59] LABS: Glucose,Whole Blood 128 mg/dL (75-99)
[2016-10-14] MEDS: LACTATED RINGERS 1,000 ML IV SCH (21:06)
[2016-10-15] MEDS: SODIUM CHLORIDE 0.9% 1,000 ML IV SCH ×4 (05:51→21:07)
[2016-10-15] MEDS: PANTOPRAZOLE 40 MG TABLET PO SCH (05:53)
[2016-10-15 05:58] LABS: Glucose,Whole Blood 102 mg/dL (75-99)
[2016-10-15 06:47] LABS: Basophils % (A) 1 %; CHCM 31.8; Eosinophils # (A) 0.2 k/uL (0-0.7); Eosinophils % (A) 3 %; HCT 35.7 % (34.0-46.0); HDW 2.47; HGB 11.3 gm/dL (11.4-16.0); INR 1.1 (<1.2); Luc # (Auto) 0.18; Luc % (Auto) 2; Lymphocytes # (A) 1.1 k/uL (1.0-4.8); Lymphocytes % (A) 13 %; MCHC 31.7 g/dL (31.0-37.0); MCV 88.4 fL (80.0-100.0); Monocytes # (A) 0.6 k/uL (0-1.0); Monocytes % (A) 7 %; Neutrophils # (A) 6.2 k/uL (1.3-7.7); Neutrophils % (A) 75 %; Partial Thromboplastin Time 23.8 sec (22.0-30.0); RBC 4.04 m/uL (3.80-5.40); RDW 15.4 % (11.5-15.5); WBC 8.4 k/uL (3.8-10.6); WBC (Perox) 8.52
[2016-10-15 07:02] LABS: ALT 29 U/L (9-52); AST 19 U/L (14-36); Alkaline Phosphatase 76 U/L (38-126); Anion Gap 7 mmol/L; Blood Urea Nitrogen 15 mg/dL (7-17); Calcium 11.1 mg/dL (8.4-10.2); Carbon Dioxide 22 mmol/L (22-30); Chloride 110 mmol/L (98-107); Glucose 100 mg/dL (74-99); Non-African American GFR(MDRD) >60 (>60 ml/min/1.73 sqM); Potassium 5.2 mmol/L (3.5-5.1); Sodium 139 mmol/L (137-145); Total Bilirubin 0.3 mg/dL (0.2-1.3); Total Protein 6.1 g/dL (6.3-8.2)
[2016-10-15] MEDS ORDERED: IV FLUID CONTINUATION 1,000 ML IV ONE (09:59)
--- NOTE | 2016-10-15 10:07 | CT ---
EXAMINATION TYPE: CT Chest stacy Hooker Protocol DATE OF EXAM: 10/15/2016 COMPARISON: CT chest September 24, 2016. HISTORY: Lung mass CT DLP: 673 mGycm Automated exposure control for dose reduction was used. FINDINGS: Exam is performed for bronchoscopy planning and not for diagnostic purposes. There is background of m oderate emphysematous change redemonstrated. There is anterior right upper lobe mass continues to inc rease in size from recent CT measuring 5.3 x 4.2 cm extending to pleural surface and mediastinum on c urrent study. No definitive invasion is seen. Craniocaudal dimension is 4.4 cm on coronal image 33 se derek 8. There is new tiny right pleural effusion. Coronary artery calcification and/or stents are present. Heart size is mildly enlarged. Diffuse gastric wall thickening is redemonstrated. Osseous structures are demineralized. There is moderate multilevel spurring. There is mild to borderl ine moderate chronic compression fracture of the T3 vertebra redemonstrated. IMPRESSION: As above
[2016-10-15] MEDS ORDERED: LACTATED RINGERS 1,000 ML IV ONE (10:50)
[2016-10-15] MEDS ORDERED: fentaNYL (PF) 50 MCG/ML 2 ML AMP ONE (10:55)
[2016-10-15] MEDS ORDERED: SUCCINYLCHOLINE CHLORIDE 100 MG/5 ML SYR IV ONE (10:55)
[2016-10-15] MEDS ORDERED: MIDAZOLAM 2 MG/2 ML VIAL ONE (10:55)
[2016-10-15] MEDS ORDERED: PROPOFOL 10 MG/ML 20 ML VIAL IV ONE (10:55)
[2016-10-15] MEDS ORDERED: DEXAMETHASONE SOD PHOS (MDV) 100 MG/10 ML VIAL ONE (10:55)
[2016-10-15] MEDS ORDERED: RACEPINEPHRINE 2.25% NEB 0.5 ML NEBU INHALATION ONE ×3 (12:20)
[2016-10-15] MEDS ORDERED: ALBUTEROL NEBULIZED 2.5 MG/3 ML INHALATION ONE (12:45)
[2016-10-15] MEDS: LABETALOL SYRINGE 5 MG/ML IVP ONE ×2 (12:50→13:05)
--- NOTE | 2016-10-15 13:06 | XR ---
EXAMINATION TYPE: XR chest 1V DATE OF EXAM: 10/15/2016 COMPARISON: 10/12/2016 INDICATION: Post bronchoscopy biopsy TECHNIQUE: Single frontal view of the chest is obtained. FINDINGS: The heart size is normal. The pulmonary vasculature is normal. Right perihilar mass is present. There is diffuse increased lung markings at the right lung is well r elated atelectasis or pneumonia. No pneumothorax is evident post bronchoscopy. IMPRESSION: 1. Right upper lobe mass extending to the mediastinum. Pneumothorax is not identified at this time.
[2016-10-15] MEDS: ACETAMINOPHEN TAB 325 MG TAB PO PRN (14:04)
[2016-10-15 14:46] VITALS: BMI 24.7
[2016-10-15] MEDS: VIT A,C & E-LUTEIN-MINERALS 1 EACH TAB PO SCH ×2 (14:56→21:06)
[2016-10-15] MEDS: MAGNESIUM OXIDE 400 MG TAB PO SCH ×2 (14:57→21:05)
--- NOTE | 2016-10-15 15:33 | P.DS ---
Providers Date of admission: 10/12/16 23:52 Expected date of discharge: 10/15/16 Attending physician: Indio Alba Consults: 10/12/16 23:53 Consult Physician Routine Consulting Provider: Anival Cardona Consult Reason/Comments: lung mass Do you want consulting provider notified?: Yes 10/14/16 00:38 Consult Physician Routine Consulting Provider: Andres Pabon Consult Reason/Comments: Lung mass, bronchoscopic biopsy Do you want consulting provider notified?: Yes Primary care physician: Indio Alba Pertinent Studies: bronchoscopy Procedures: bronchoscopy, ct chest Patient Condition at Discharge: Fair Plan - Discharge Summary New Discharge Prescriptions: No Action Simvastatin [Zocor] 20 mg PO HS PARoxetine HCL 30 mg PO HS Pantoprazole Sodium 40 mg PO DAILY Fenofibrate 160 mg PO HS Multivitamins, Thera [Multivitamin (formulary)] 1 tab PO HS Lisinopril [Zestril] 10 mg PO DAILY Krill/Om-3/Dha/Epa/Phospho/Ast [[place]-3 Krill Oil 300 mg Sfgl] 1 cap PO DAILY Vit C/E/Zn/Coppr/Lutein/Zeaxan [Preservision Areds 2 Softgel] 1 cap PO BID sitaGLIPtin PHOSPHATE [Januvia] 100 mg PO DAILY Warfarin Sodium 2.5 mg PO DAILY Magnesium Gluconate [Magonate] 500 mg PO BID Cholecalciferol [Vitamin D3] 1,000 unit PO HS Calcium Carbonate [Calcium] 1,200 mg PO DAILY Atenolol [Tenormin] 25 mg PO BID Discharge Medication List Fenofibrate 160 mg PO HS 11/27/14 [History] Multivitamins, Thera [Multivitamin (formulary)] 1 tab PO HS 11/27/14 [History] PARoxetine HCL 30 mg PO HS 11/27/14 [History] Pantoprazole Sodium 40 mg PO DAILY 11/27/14 [History] Simvastatin [Zocor] 20 mg PO HS 11/27/14 [History] Krill/Om-3/Dha/Epa/Phospho/Ast [[place]-3 Krill Oil 300 mg Sfgl] 1 cap PO DAILY [History] Lisinopril [Zestril] 10 mg PO DAILY 09/16/15 [History] Vit C/E/Zn/Coppr/Lutein/Zeaxan [Preservision Areds 2 Softgel] 1 cap PO BID 09/15 [History] Warfarin Sodium 2.5 mg PO DAILY 09/26/15 [History] sitaGLIPtin PHOSPHATE [Januvia] 100 mg PO DAILY 09/26/15 [History] Atenolol [Tenormin] 25 mg PO BID 10/12/16 [History] Calcium Carbonate [Calcium] 1,200 mg PO DAILY 10/12/16 [History] Cholecalciferol [Vitamin D3] 1,000 unit PO HS 10/12/16 [History] Magnesium Gluconate [Magonate] 500 mg PO BID 10/12/16 [History]
[2016-10-15] MEDS: CALCIUM CARBONATE 500 MG CHEWABLE PO SCH (16:14)
[2016-10-15] MEDS: LISINOPRIL 10 MG TAB PO SCH (16:16)
[2016-10-15] MEDS: LINAGLIPTIN 5 MG TABLET PO SCH (16:16)
[2016-10-15] MEDS: ATENOLOL 25 MG TAB PO SCH ×2 (16:16→21:05)
[2016-10-15] MEDS: LACTATED RINGERS 1,000 ML IV SCH (16:25)
--- NOTE | 2016-10-15 16:28 | P.PN ---
Subjective Principal diagnosis: Lung cancer by history with new lesion on the right, coagulopathy, hypomagnesemia hypokalemia dehydration. eDbra is well-known to our practice 62s 10-year-old white female. Patient has a history of locally advanced non-small cell cancer diagnosed about 15 years ago. Was treated with concurrent chemoradiation, and he has been in remission since. CT about a year ago showed an opacity in the right upper lobe, that was somewhat suspicious but was not further defined. Presented to the emergency room recently of generally not feeling well decreased appetite slowly progressing weight loss approximately 15 pounds had a computed tomography scan 2 weeks ago showing a 3.6 x 4 x 4.4 a masslike consolidation in the right upper lobe. This mass was more suspicious looking and then compared to a year ago PET scan has been scheduled for tomorrow 10-16-16. Earlier today patient underwent bronchoscopy, patient is still feeling the effects of the anesthetic anticipated discharge later this evening plan on discharge tomorrow morning on her around 8:00 Objective - Vital Signs Vital signs: Vital Signs Temp 97.9 F 10/15/16 13:58 Pulse 56 L 10/15/16 13:58 Resp 20 10/15/16 13:58 BP 127/56 10/15/16 13:58 Pulse Ox 93 L 10/15/16 13:58 Intake & Output 10/14/16 10/15/16 10/15/16 18:59 06:59 18:59 Intake Total 1611 2400 2400 Output Total 600 Balance 1011 2400 2400 Weight 53.6 kg 53.6 kg Intake: IV 800 2400 2400 Sodium Chloride 0.9% 1, 800 2400 1200 000 ml @ 150 mls/hr IV . Q6H40M [facility] Rx#:[id number] Oral 811 Output: Urine 600 Other: # Voids 1 - Exam General: [Patient awake, alert and oriented times 3. Patient in no acute distress.] HEENT: [PERRL. EOMI. No pharyngeal erythema or exudate.] Neck: [No adenopathy.] Cardiac: [Heart regular in rate and rhythm. No S3. No S4. No clicks, rubs. No murmur.] Lungs: Diminished coarse breath sounds bilaterally, with somewhat productive cough Abdomen: [No mass. No organomegaly. Bowel sounds presnt and normoactive in all 4 quadrants.] Extremes: [No edema no cyanosis no claudication normal pulses] : [] Musculoskeletal: [No joint erythema, edema or tenderness.] Skin: [No rash.] Neurologic: [No lateralizing deficits. CN II - XII grossly intact.] Lymphatic: [No adenopathy.] - Labs CBC & Chem 7: 10/15/16 05:38 10/15/16 05:38 Labs: Abnormal Lab Results - Last 24 Hours (Table) 10/14/16 10/14/16 10/15/16 Range/Units 16:29 20:57 05:38 Hgb 11.3 L (11.4-16.0) gm/dL Potassium (3.5-5.1) mmol/L Chloride (98-107) mmol/L Glucose (74-99) mg/dL POC Glucose (mg/dL) 109 H 128 H (75-99) mg/dL Calcium (8.4-10.2) mg/dL Total Protein (6.3-8.2) g/dL Albumin (3.5-5.0) g/dL 10/15/16 10/15/16 Range/Units 05:38 05:57 Hgb (11.4-16.0) gm/dL Potassium 5.2 H (3.5-5.1) mmol/L Chloride 110 H (98-107) mmol/L Glucose 100 H (74-99) mg/dL POC Glucose (mg/dL) 102 H (75-99) mg/dL Calcium 11.1 H (8.4-10.2) mg/dL Total Protein 6.1 L (6.3-8.2) g/dL Albumin 3.4 L (3.5-5.0) g/dL Microbiology - Last 24 Hours (Table) 10/13/16 16:40 Urine Culture - Final Urine,Voided Assessment and Plan (1) Coagulopathy Narrative/Plan: Resolved Status: Acute (2) Fatigue Narrative/Plan: Improved Status: Acute (3) Hyperkalemia Narrative/Plan: Stable Status: Acute (4) Hypomagnesemia Narrative/Plan: He has a evelia was O's pills R right when I would do is get him he's still there may get a copy of the CT get no known of the disc T and hands year he probably needs breath having evidence of currently using knee with Dr. Powell. Dr. Springer with a is currently IU probably recognizes name Yunier Tarango I saw him this afternoon the office the EEA had a lung cancer get a acute joint U anyway. I urinary back is this coming in that aspirated pill one of the guides using Yunier Acuña also none the evelia and he might need to be bronched right now thank you anyway that U Peyman he took some pills his regular dose in the morning and he aspirated one of which I dry eye syndrome for a CAT scan here and apparently CAT scan sounds A" on emergency any E doesn't like the [facility] so he was combative over a year and they called me and apparently shows the ulcer and the correct at the evelia so anyway he's recommending the urinary air and activity and joint just advised of a congenital the same Status: Acute (5) Lung mass Narrative/Plan: New lung mass on the right Status: Acute Plan: Patient is undergoing PET scan tomorrow regarding discharge on her around 8:00 in the morning
[2016-10-15 16:32] VITALS: RESP 16
[2016-10-15 16:42] LABS: Glucose,Whole Blood 161 mg/dL (75-99)
--- NOTE | 2016-10-15 18:15 | P.PN ---
Subjective The patient is a 70-year-old lady, well known to our service. She follows with Dr. Cardona in the outpatient setting. She had a history of locally advanced non-small cell lung cancer diagnosed about 15 years ago. She was treated with concurrent chemoradiation, and has been in remission since. Computed tomography scan about a year ago, showed an opacity in the right upper lobe, that was somewhat suspicious but could not be defined further. She presented a few months ago, with complains of generally not feeling well, decreased appetite and slowly progressive weight loss. She had a computed tomography scan done 2 weeks ago, showing a 3.644.4 cm masslike consolidation in the right upper lobe. This was much more suspicious in appearance, compared to a year ago. A PET scan was scheduled for 10/15/16 The patient was originally hospitalized for electrode imbalance. She was found to have low potassium and low magnesium before replaced during this current hospitalization. Her weakness is improved. Her INR was elevated at was reversed in preparation for bronchoscopy. The patient also has history of extensive DVT that was diagnosed, of her lung cancer 15 years ago and she has been maintained on anticoagulation since. I believe she has an IVC filter in place. No hemoptysis. No chest pain at this point. She has noted some minimal hemoptysis and she attributed this to her anticoagulation. No cough and out of major blood clots. On 10/15/2016 the patient is being seen in follow-up. The patient is doing well. The plan is to present a bronchoscopy today. No new complaints. On and off she is having some minor hemoptysis which is not a ongoing active issue for now. The patient is utilizing CPAP overnight. The patient is stable. The procedure was explained to her at length. One concern is her paralyzed vocal cords and this will be of close attention during the procedure. Objective - Vital Signs Vital signs: Vital Signs Temp 97.8 F 10/15/16 16:00 Pulse 84 10/15/16 16:00 Resp 16 10/15/16 17:38 BP 156/70 10/15/16 16:00 Pulse Ox 92 L 10/15/16 17:38 Intake & Output 10/14/16 10/15/16 10/15/16 18:59 06:59 18:59 Intake Total 1611 2400 2400 Output Total 600 Balance 1011 2400 2400 Weight 53.6 kg 53.6 kg Intake: IV 800 2400 2400 Sodium Chloride 0.9% 1, 800 2400 1200 000 ml @ 150 mls/hr IV . Q6H40M [facility] Rx#:[id number] Oral 811 Output: Urine 600 Other: # Voids 1 - Exam The patient appeared well nourished and normally developed. Vital signs as documented. Head exam is unremarkable. No scleral icterus or corneal arcus noted. Neck is without jugular venous distension, thyromegaly, or carotid bruits. Carotid upstrokes are brisk bilaterally. Lungs are diminished breath sounds bilaterally. Cardiac exam reveals the PMI to be normally sized and situated. Rhythm is regular. First and second heart sounds normal. No murmurs, rubs or gallops. Abdominal exam reveals normal bowel sounds, no masses, no organomegaly and no aortic enlargement. Extremities are nonedematous and both femoral and pedal pulses are normal. - Labs CBC & Chem 7: 10/15/16 05:38 10/15/16 05:38 Labs: Abnormal Lab Results - Last 24 Hours (Table) 10/14/16 10/15/16 10/15/16 Range/Units 20:57 05:38 05:38 Hgb 11.3 L (11.4-16.0) gm/dL Potassium 5.2 H (3.5-5.1) mmol/L Chloride 110 H (98-107) mmol/L Glucose 100 H (74-99) mg/dL POC Glucose (mg/dL) 128 H (75-99) mg/dL Calcium 11.1 H (8.4-10.2) mg/dL Total Protein 6.1 L (6.3-8.2) g/dL Albumin 3.4 L (3.5-5.0) g/dL 10/15/16 10/15/16 Range/Units 05:57 16:39 Hgb (11.4-16.0) gm/dL Potassium (3.5-5.1) mmol/L Chloride (98-107) mmol/L Glucose (74-99) mg/dL POC Glucose (mg/dL) 102 H 161 H (75-99) mg/dL Calcium (8.4-10.2) mg/dL Total Protein (6.3-8.2) g/dL Albumin (3.5-5.0) g/dL Microbiology - Last 24 Hours (Table) 10/13/16 16:40 Urine Culture - Final Urine,Voided Assessment and Plan Plan: Assessment 1 right upper lobe mass measuring 4.4 x 4 x 3.6 cm in size. The findings are very suspicious for lung cancer. Possibly a second primary knowing that there has been a long lapse of more than 10 years between the initial lung cancer and the current findings. Tissue diagnosis will be needed. We'll recommend bronchoscopy and biopsy. The patient is experiencing some mild hemoptysis and we suspect there may be some endobronchial finding in addition. 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 We will hold anticoagulation for now until the workup is completed. The case was discussed with Dr. Alba, oncology and the family members.
[2016-10-15 20:33] LABS: Glucose,Whole Blood 210 mg/dL (75-99)
[2016-10-15] MEDS: FENOFIBRATE 160 MG TAB PO SCH (21:05)
[2016-10-15] MEDS: CHOLECALCIFEROL 1,000 UNIT TAB PO SCH (21:05)
[2016-10-15] MEDS: ATORVASTATIN 10 MG TAB PO SCH (21:05)
[2016-10-15] MEDS: MULTIVITAMINS, THERA 1 EACH TAB PO SCH (21:06)
[2016-10-15] MEDS: PARoxetine 10 MG TAB PO SCH (21:06)
[2016-10-16] MEDS: SODIUM CHLORIDE 0.9% 1,000 ML IV SCH (03:10)
[2016-10-16] MEDS: ACETAMINOPHEN TAB 325 MG TAB PO PRN (03:10)
[2016-10-16 05:54] LABS: Glucose,Whole Blood 107 mg/dL (75-99)
[2016-10-16] MEDS: PANTOPRAZOLE 40 MG TABLET PO SCH (06:04)
[2016-10-16 06:07] LABS: Basophils % (A) 0 %; CH 26.8; CHCM 30.9; Eosinophils % (A) 0 %; HDW 2.42; Hypochromasia Slight; Luc # (Auto) 0.16; Luc % (Auto) 2; Lymphocytes # (A) 0.7 k/uL (1.0-4.8); Lymphocytes % (A) 8 %; MCH 27.9 pg (25.0-35.0); Mean Platelet Volume 8.3; Monocytes # (A) 0.5 k/uL (0-1.0); Monocytes % (A) 7 %; Neutrophils # (A) 6.4 k/uL (1.3-7.7); Neutrophils % (A) 82 %; RBC 3.45 m/uL (3.80-5.40); RDW 14.5 % (11.5-15.5); WBC 7.8 k/uL (3.8-10.6); WBC (Perox) 8.38
[2016-10-16 06:11] LABS: HGB 9.6 gm/dL (11.4-16.0)
[2016-10-16 06:15] LABS: INR 1.2 (<1.2); Partial Thromboplastin Time 22.1 sec (22.0-30.0); Prothrombin Time 12.1 sec (9.0-12.0)
[2016-10-16 06:21] LABS: ALT 31 U/L (9-52); AST 56 U/L (14-36); Alkaline Phosphatase 64 U/L (38-126); Anion Gap 3 mmol/L; Blood Urea Nitrogen 14 mg/dL (7-17); Calcium 11.1 mg/dL (8.4-10.2); Carbon Dioxide 24 mmol/L (22-30); Chloride 111 mmol/L (98-107); Glucose 93 mg/dL (74-99); Non-African American GFR(MDRD) >60 (>60 ml/min/1.73 sqM); Sodium 138 mmol/L (137-145); Total Bilirubin 0.3 mg/dL (0.2-1.3); Total Protein 5.2 g/dL (6.3-8.2)
[2016-10-16] MEDS: VIT A,C & E-LUTEIN-MINERALS 1 EACH TAB PO SCH (07:44)
[2016-10-16] MEDS: CALCIUM CARBONATE 500 MG CHEWABLE PO SCH (07:44)
[2016-10-16] MEDS: MAGNESIUM OXIDE 400 MG TAB PO SCH (07:44)
[2016-10-16] MEDS: ATENOLOL 25 MG TAB PO SCH (07:45)
[2016-10-16] MEDS: LISINOPRIL 10 MG TAB PO SCH (07:45)
[2016-10-16] MEDS: LINAGLIPTIN 5 MG TABLET PO SCH (07:45)
[2016-10-16 08:05] VITALS: BP 160/71; PULSE 84; TEMP 98.8
--- NOTE | 2016-10-16 10:35 | PCN ---
PROCEDURE NOTE PROCEDURE: Navigation bronchoscopy. PREOP DIAGNOSIS: Right upper lobe mass. POSTOP DIAGNOSIS: Right upper lobe mass. PROCEDURE PERFORMED: Navigational bronchoscopy, airway inspection, endobronchial biopsies of a lingular segment lesion, transbronchial biopsies of the right upper lobe mass, a bronchioalveolar lavage of the right upper lobe mass. COMPLICATIONS: None. DESCRIPTION OF PROCEDURE: This procedure was done in the operating room. The procedure was supposed to be done under general anesthesia while the patient being intubated on a mechanical ventilator. Note that the patient has history of vocal cord paralysis and I asked anesthesia to be extremely cautious while intubating the patient. Initially while the patient was the GlideScope was used to intubate the patient by the [employer]. Unable to pass an 8 oral tracheal tube. Unable to pass a 7 oral tracheal tube. At that point, no further attempts for intubation was done and a LMA was inserted for ventilation and oxygenation during the procedure. Note that this procedure was done using navigational guidance. A plannery CT scan of the chest was done. The patient was taken to the CAT scan department where the V pads were applied. A CT scan was obtained and the CT scan was downloaded to our planning station. The right upper lobe mass was marked and the navigational guidance was mapped and the appropriate trajectory was identified. Following that, all this information was uploaded to the navigational system. The procedure was done by inserting a flexible bronchoscope through the LMA and the bronchoscope was advanced to the lower trachea. The appropriate calibration was done. Two entrance points were used and these included the main evelia and the secondary evelia in the right upper lobe. Following that, airway inspection was done. Trachea was within normal. The right upper lobe bronchus and right middle lobe bronchus and the right lower lobe bronchus was visualized. Left upper lobe bronchus was then inspected and occupying the inferior segment of the lingula, there was an endobronchial bruise that seems to be quite vascular. The left upper lobe bronchus was patent. Left lower lobe bronchus was patent. Endobronchial biopsies of the growth on the lingular occupying the lingular segment was done. A total of 3 endobronchial biopsies were obtained. Following that, the bronchoscope was moved to the right side. Then using navigational guidance, several attempts were made to biopsy the right upper lobe mass. Unfortunately the fraction that was obtained by the bronchoscope was not enough to cannulate the apical segment. Also multiple attempts were done to advanced the forceps into the right upper lobe apical segment. However based on the curvature that was needed to right the right upper lobe bronchoscope, I was unable to advance the forceps while the bronchoscope was being in a fully flexed position. A few attempts were done also to biopsy the anterior segment of the right upper lobe which also led to the right upper lobe mass. In any rate, the procedure was completed. The bronchoscope was removed. The was removed. The patient had some stridorous breathing postop which gradually improved and recovered. The patient was monitored in the recovery room. Following that, she was transferred back to her room. PET scan is to follow. MMODL / IJN: [id number] /
== END 2016-10-16 07:58 | disposition home or self-care (01) | DRG 989 ==
LOC: EC 21:23 → 6SEL 23:52
PROVIDERS: ADMIT Family Medicine; ATTEND Family Medicine
PROC: 0BB98ZX Excision of Lingula Bronchus, Via Natural or Artificial Opening Endoscopic, Diagnostic (ICD-10-PCS; principal; 2016-10-15 10:45)
PROC: 0B9C8ZX Drainage of Right Upper Lung Lobe, Via Natural or Artificial Opening Endoscopic, Diagnostic (ICD-10-PCS; 2016-10-15 10:45)
DX: E83.42 Hypomagnesemia (principal); J38.00 Paralysis of vocal cords and larynx, unspecified; J44.9 Chronic obstructive pulmonary disease, unspecified; E87.5 Hyperkalemia; E11.9 Type 2 diabetes mellitus without complications; E78.5 Hyperlipidemia, unspecified; E86.0 Dehydration; F17.200 Nicotine dependence, unspecified, uncomplicated; G47.33 Obstructive sleep apnea (adult) (pediatric); I25.10 Atherosclerotic heart disease of native coronary artery without angina pectoris; K21.9 Gastro-esophageal reflux disease without esophagitis; M19.90 Unspecified osteoarthritis, unspecified site; T45.515A Adverse effect of anticoagulants, initial encounter; M75.01 Adhesive capsulitis of right shoulder; R63.4 Abnormal weight loss; R91.8 Other nonspecific abnormal finding of lung field; R79.1 Abnormal coagulation profile; Z79.84 Long term (current) use of oral hypoglycemic drugs; Z79.01 Long term (current) use of anticoagulants; Z79.899 Other long term (current) drug therapy; Z85.118 Personal history of other malignant neoplasm of bronchus and lung; Z95.5 Presence of coronary angioplasty implant and graft; Z88.5 Allergy status to narcotic agent; Z88.8 Allergy status to other drugs, medicaments and biological substances; Z91.041 Radiographic dye allergy status; Z86.14 Personal history of Methicillin resistant Staphylococcus aureus infection; Z82.49 Family history of ischemic heart disease and other diseases of the circulatory system
CPT/HCPCS: 31623; 31624; 31625; 31627; 36415; 71010; 71020; 71250; 80048; 80053; 81001; 83735; 84100; 85025; 85610; 85730; 87086; 88104; 88108; 88305; 93005; 96365; 96366; 96375; 99285

== ENCOUNTER → 2016-10-16 | Outpatient (CLI) | payer MEDICARE, BC ==
--- NOTE | 2016-10-16 18:33 | PE ---
EXAMINATION TYPE: PET CT fusion skull to thigh DATE OF EXAM: 10/16/2016 COMPARISON: CT chest September 24, 2016 and older studies. HISTORY: Recurrent lung cancer originally diagnosed in 1999 and treated in 2000. Recent abnormal CT a nd biopsy. TECHNIQUE: Following the intravenous administration of 14.84 mCi of F-18 FDG, whole body images are performed from the skull base to the midthigh. Images are reviewed on the computer in the coronal, a xial, and sagittal planes. Reconstructed rotating images are created on independent workstation and reviewed on the computer. A localization and attenuation correction CT is performed in conjunction with the PET scan. SCAN: Initial Scan after tumor recurrence. FINDINGS: SKULL BASE AND NECK: No suspicious hypermetabolic uptake is identified in the neck to suggest new ne ck adenopathy. CHEST, MEDIASTINUM, AND HILAR REGION: Corresponding to recent chest CT there is redemonstration of mo derate emphysematous change. On current study there is new small right pleural effusion without abnor mal hypermetabolic uptake. Corresponding to recent CT there is new anterior right upper lobe hypermetabolic mass measuring 5.4 x 4.1 cm on axial image 60 by roughly 4 cm in craniocaudal dimension with max SUV of 13.59. This abuts pleural and mediastinal surfaces superiorly. There is mass effect on the right upper lobe bronchus. There is extension inferiorly towards right suprahilar level with hypermetabolic uptake suspicious fo r mediastinal invasion or adenopathy on axial image 65 at level of evelia. There is no distinct separ ation from these levels to distinctly identify mass and/or adenopathy or central spread of neoplasm i nto mediastinum. Remainder of the thorax shows no suspicious hypermetabolic uptake. ABDOMEN AND PELVIS: No suspicious hypermetabolic uptake is seen in the abdomen or pelvis. No adrenal masses are noted. OSSEOUS STRUCTURES: There is area of abnormal metabolic uptake corresponding to adjacent healing frac tures of in the anterior fourth through sixth ribs. No suspicious osseous uptake is otherwise identif ied. OTHER CT: There is stable 1 cm nonhypermetabolic nodule in the right breast on axial image [address] unch[address] ed from 2010 CT axial image 35. There is persistent calcified right axillary masses or lymph nodes. Coronary artery calcification is redemonstrated which is noted marker for coronary artery disease. There is cardiomegaly redemonstrated. Cholecystectomy clips are redemonstrated. There is calcification in spleen redemonstrated. An infrarenal IVC filter is noted. There are colonic diverticula most prominent in the left and sigmoid colon. There is moderate calcified plaque of the abdominal aorta extending into pelvic branch vessels. There is facet arthropathy in the lower lumbar spine. IMPRESSION: Recurrent tumor or neoplasm right upper lobe is confirmed. Staging is difficult as detail ed above as there is either adjacent right hilar adenopathy or inferior mediastinal/right hilar invas ion. Correlate clinically and with bronchoscopy findings. Contrast-enhanced chest CT may be beneficia l to further assess if felt necessary.
== END | disposition home or self-care (01) ==
LOC: RADPETMAIN 13:35
PROVIDERS: ATTEND Internal Medicine Hematology & Oncology
DX: C34.90 Malignant neoplasm of unspecified part of unspecified bronchus or lung (principal)
CPT/HCPCS: 78815; A9552

== ENCOUNTER 2016-10-19 18:18 | Emergency (ER) | payer MEDICARE, BC ==
--- NOTE | 2016-10-19 18:46 | ED ---
General Adult HPI - General Chief complaint: Recheck/Abnormal Lab/Rx Stated complaint: abnormal labs Time Seen by Provider: 10/19/16 18:35 Source: patient, family, RN notes reviewed Mode of arrival: ambulatory Limitations: no limitations - History of Present Illness Initial comments: Patient is a pleasant 70-year-old female presenting to the emergency department with concerns regarding hypomagnesemia. Patient had her level checked today what was reported at 0.9. Patient states she has been fatigued otherwise no complaints. Patient does have a recent diagnosis of recurrent lung cancer. Patient was just discharged from the hospital with hypomagnesemia several days ago. - Related Data Home Medications Medication Instructions Recorded Confirmed Fenofibrate 160 mg PO HS 11/27/14 10/19/16 Multivitamins, Thera [Multivitamin 1 tab PO HS 11/27/14 10/19/16 (formulary)] PARoxetine HCL 30 mg PO HS 11/27/14 10/19/16 Pantoprazole Sodium 40 mg PO BID 11/27/14 10/19/16 Simvastatin [Zocor] 20 mg PO HS 11/27/14 10/19/16 Krill/Om-3/Dha/Epa/Phospho/Ast 1 cap PO DAILY 09/16/15 10/19/16 [[place]-3 Krill Oil 300 mg Sfgl] Lisinopril [Zestril] 10 mg PO DAILY 09/16/15 10/19/16 Vit C/E/Zn/Coppr/Lutein/Zeaxan 1 cap PO BID 09/16/15 10/19/16 [Preservision Areds 2 Softgel] Warfarin Sodium 2.5 mg PO DAILY 09/26/15 10/19/16 sitaGLIPtin PHOSPHATE [Januvia] 100 mg PO DAILY 09/26/15 10/19/16 Atenolol [Tenormin] 25 mg PO BID 10/12/16 10/19/16 Cholecalciferol [Vitamin D3] 2,000 unit PO DAILY 10/12/16 10/19/16 Magnesium Gluconate [Magonate] 500 mg PO BID 10/12/16 10/19/16 ALPRAZolam [Xanax] 0.25 mg PO Q4H PRN 10/19/16 10/19/16 Acetaminophen Tab [Tylenol Tab] 1,000 mg PO Q6HR PRN 10/19/16 10/19/16 Calcium 500mg 500 mg PO DAILY 10/19/16 10/19/16 HYDROcodone/APAP 5-325MG [[place] 1 tab PO Q6H PRN 10/19/16 10/19/16 5-325] hydrALAZINE HCL [Hydralazine HCl] 25 mg PO BID 10/19/16 10/19/16 Allergies Allergy/AdvReac Type Severity Reaction Status Date / Time Iodinated Contrast- Oral and Allergy Severe Anaphylaxis Verified 10/19/16 18:56 IV Dye [Iodinated Contrast Media - IV Dye] codeine Allergy Rash/Hives Verified 10/19/16 18:56 metaxalone [From Skelaxin] Allergy Rash/Hives Verified 10/19/16 18:56 oxycodone HCl [From Percocet] Allergy Rash/Hives Verified 10/19/16 18:56 clopidogrel bisulfate AdvReac Headache Verified 10/19/16 18:56 [From Plavix] Review of Systems ROS Statement: Those systems with pertinent positive or pertinent negative responses have been documented in the HPI. ROS Other: All systems not noted in ROS Statement are negative. Constitutional: Denies: fever Eyes: Denies: eye pain ENT: Denies: ear pain Respiratory: Denies: cough Cardiovascular: Denies: chest pain Endocrine: Reports: fatigue Gastrointestinal: Denies: abdominal pain Genitourinary: Denies: dysuria Musculoskeletal: Denies: back pain Skin: Denies: rash Neurological: Denies: weakness Past Medical History Past Medical History: Coronary Artery Disease (CAD), Cancer, COPD, Diabetes Mellitus, Deep Vein Thrombosis (DVT), GERD/Reflux, GI Bleed, Hyperlipidemia, Musculoskeletal Disorder, Pneumonia, Sleep Apnea/CPAP/BIPAP Additional Past Medical History / Comment(s): Non-small cell lung cancer diagnosed and treated 15 years ago with a concurrent chemoradiation therapy, COPD, 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 and the patient has an IVC filter in place, coronary artery disease with previous coronary intervention and stenting, hyperlipidemia, previous history of GI bleed, obstructive sleep apnea, acid reflux, 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, diabetes mellitus History of Any Multi-Drug Resistant Organisms: MRSA Date of last positivie culture/infection: 2011 MDRO Source:: leg Past Surgical History: Adenoidectomy, Breast Surgery, Cholecystectomy, Heart Catheterization With Stent, Hysterectomy, Tonsillectomy Additional Past Surgical History / Comment(s): yamilex filter, mediastinoscopy, cyst removed from rt breast, gene leg surgery for thorn removal , implantable device for paralyzed vocal cord Past Anesthesia/Blood Transfusion Reactions: No Reported Reaction Date of Last Stent Placement:: 05/16/2007 Past Psychological History: No Psychological Hx Reported Smoking Status: Current every day smoker Past Alcohol Use History: None Reported Past Drug Use History: None Reported - Past Family History Father History Unknown: Yes Additional Family Medical History / Comment(s): multiple sclreosis and heart disease. after heart cath at age 49 Mother History Unknown: Yes Family Medical History: Diabetes Mellitus, Hyperlipidemia, Hypertension Additional Family Medical History / Comment(s): heart disease Sister(s) History Unknown: Yes Family Medical History: Cancer Additional Family Medical History / Comment(s): breast Cancer. Multiple sclreosis General Exam Limitations: no limitations General appearance: alert, in no apparent distress Head exam: Present: atraumatic Eye exam: Present: normal appearance, PERRL ENT exam: Present: normal oropharynx Neck exam: Present: normal inspection Respiratory exam: Present: normal lung sounds bilaterally Cardiovascular Exam: Present: regular rate, normal rhythm Extremities exam: Present: normal inspection Neurological exam: Present: alert Psychiatric exam: Present: normal affect, normal mood Skin exam: Present: normal color Course Vital Signs 10/19/16 10/19/16 18:24 18:59 Temperature 98.1 F Pulse Rate 79 Respiratory 20 20 Rate Blood Pressure 110/61 O2 Sat by Pulse 96 Oximetry EKG Findings - EKG Comments: EKG Findings:: Normal sinus rhythm 72. MD 114. QRS 80. QT 372. QTC 47. Normal axis. Normal QRS. Normal ST-T. Medical Decision Making - Medical Decision Making Case discussed in detail with Dr. Nava who is familiar with this patient. He recommends 4 g magnesium IV and a oral dose and they will follow-up tomorrow again with the patient. Patient reevaluated and updated. Patient was given some IV fluids for hypercalcemia. - Lab Data Result diagrams: 10/19/16 18:54 10/19/16 18:54 Lab Results 10/19/16 10/19/16 10/19/16 Range/Units 18:54 18:54 18:54 WBC 8.3 (3.8-10.6) k/uL RBC 3.82 (3.80-5.40) m/uL Hgb 10.6 L (11.4-16.0) gm/dL Hct 32.7 L (34.0-46.0) % MCV 85.5 (80.0-100.0) fL MCH 27.8 (25.0-35.0) pg MCHC 32.5 (31.0-37.0) g/dL RDW 15.5 (11.5-15.5) % Plt Count 261 (150-450) k/uL Neutrophils % 71 % Lymphocytes % 17 % Monocytes % 6 % Eosinophils % 3 % Basophils % 0 % Neutrophils # 5.9 (1.3-7.7) k/uL Lymphocytes # 1.4 (1.0-4.8) k/uL Monocytes # 0.5 (0-1.0) k/uL Eosinophils # 0.2 (0-0.7) k/uL Basophils # 0.0 (0-0.2) k/uL PT 24.8 H (9.0-12.0) sec INR 2.6 H (<1.2) APTT 22.5 (22.0-30.0) sec Sodium 137 (137-145) mmol/L Potassium 4.8 (3.5-5.1) mmol/L Chloride 104 (98-107) mmol/L Carbon Dioxide 24 (22-30) mmol/L Anion Gap 9 mmol/L BUN 31 H (7-17) mg/dL Creatinine 0.93 (0.52-1.04) mg/dL Est GFR (MDRD) Af Amer >60 (>60 ml/min/1.73 sqM) Est GFR (MDRD) Non-Af 60 (>60 ml/min/1.73 sqM) Glucose 168 H (74-99) mg/dL Calcium 11.6 H (8.4-10.2) mg/dL Ionized Calcium Terrence 6.2 H* (4.5-5.3) mg/dL Phosphorus 2.9 (2.5-4.5) mg/dL Magnesium 0.7 L* (1.6-2.3) mg/dL Total Bilirubin 0.3 (0.2-1.3) mg/dL AST 25 (14-36) U/L ALT 31 (9-52) U/L Alkaline Phosphatase 61 (38-126) U/L Total Protein 6.2 L (6.3-8.2) g/dL Albumin 3.6 (3.5-5.0) g/dL TSH 1.800 (0.465-4.680) mIU/L Free T4 1.60 (0.78-2.19) ng/dL Disposition Clinical Impression: Hypomagnesemia, Hypercalcemia Disposition: HOME SELF-CARE Condition: Stable Instructions: Hypomagnesemia (ED), Hypercalcemia (ED) Additional Instructions: Please follow-up in the morning with Dr. Mensah or Dr. Nava. You will need to have your magnesium level rechecked tomorrow. Return for increased weakness , worsening symptoms or other concerns. Referrals: Indio Alba Jr, DO [Primary Care Provider] - 1-2 days Time of Disposition: 20:26
[2016-10-19 19:11] LABS: Basophils % (A) 0 %; CH 28.4; CHCM 33.3; Eosinophils # (A) 0.2 k/uL (0-0.7); Eosinophils % (A) 3 %; HCT 32.7 % (34.0-46.0); HDW 2.42; HGB 10.6 gm/dL (11.4-16.0); Luc # (Auto) 0.25; Luc % (Auto) 3; Lymphocytes # (A) 1.4 k/uL (1.0-4.8); Lymphocytes % (A) 17 %; MCH 27.8 pg (25.0-35.0); MCHC 32.5 g/dL (31.0-37.0); MCV 85.5 fL (80.0-100.0); Mean Platelet Volume 7.9; Monocytes # (A) 0.5 k/uL (0-1.0); Monocytes % (A) 6 %; Neutrophils # (A) 5.9 k/uL (1.3-7.7); Neutrophils % (A) 71 %; RBC 3.82 m/uL (3.80-5.40); RDW 15.5 % (11.5-15.5); WBC 8.3 k/uL (3.8-10.6); WBC (Perox) 8.77
[2016-10-19 19:17] LABS: Ionized Calcium 6.2 mg/dL (4.5-5.3)
[2016-10-19 19:22] LABS: INR 2.6 (<1.2); Partial Thromboplastin Time 22.5 sec (22.0-30.0); Prothrombin Time 24.8 sec (9.0-12.0)
[2016-10-19 19:26] LABS: ALT 31 U/L (9-52); AST 25 U/L (14-36); Alkaline Phosphatase 61 U/L (38-126); Anion Gap 9 mmol/L; Blood Urea Nitrogen 31 mg/dL (7-17); Calcium 11.6 mg/dL (8.4-10.2); Carbon Dioxide 24 mmol/L (22-30); Chloride 104 mmol/L (98-107); Glucose 168 mg/dL (74-99); Non-African American GFR(MDRD) 60 (>60 ml/min/1.73 sqM); Phosphorous 2.9 mg/dL (2.5-4.5); Potassium 4.8 mmol/L (3.5-5.1); Sodium 137 mmol/L (137-145); Total Bilirubin 0.3 mg/dL (0.2-1.3); Total Protein 6.2 g/dL (6.3-8.2)
[2016-10-19] MEDS ORDERED: SODIUM CHLORIDE 0.9% 1,000 ML IV STA (19:28)
[2016-10-19 19:38] LABS: Magnesium 0.7 mg/dL (1.6-2.3)
[2016-10-19] MEDS ORDERED: MAGNESIUM OXIDE 400 MG TAB PO STA (20:15)
[2016-10-19] MEDS: MAGNESIUM SULFATE-D5W PMX 1 GM in DEXTROSE/WATER 1 100ML.BAG IVPB SCH ×4 (20:16→22:09)
[2016-10-19] MEDS ORDERED: SODIUM CHLORIDE 0.9% 500 ML IV STA (20:27)
[2016-10-19 20:55] VITALS: RESP 16
[2016-10-19 23:05] VITALS: BP 143/61; PULSE 73; TEMP 98.4
== END 2016-10-19 23:19 | disposition home or self-care (01) ==
LOC: EC 18:18
DX: E83.42 Hypomagnesemia (principal); E83.52 Hypercalcemia; R53.81 Other malaise; I25.10 Atherosclerotic heart disease of native coronary artery without angina pectoris; E11.9 Type 2 diabetes mellitus without complications; K21.9 Gastro-esophageal reflux disease without esophagitis; E78.5 Hyperlipidemia, unspecified; J44.9 Chronic obstructive pulmonary disease, unspecified; F17.200 Nicotine dependence, unspecified, uncomplicated; Z85.118 Personal history of other malignant neoplasm of bronchus and lung; Z86.718 Personal history of other venous thrombosis and embolism; Z79.01 Long term (current) use of anticoagulants; Z79.899 Other long term (current) drug therapy; Z91.041 Radiographic dye allergy status; Z88.5 Allergy status to narcotic agent; Z88.8 Allergy status to other drugs, medicaments and biological substances
CPT/HCPCS: 99283; 96365; 96366; 36415; 93005; 84439; 84481; 80053; 82330; 83735; 84100; 84443; 85025; 85610; 85730; 96361; J3475

== ENCOUNTER 2016-11-02 08:56 | Day surgery (SDC) | payer MEDICARE, BC ==
[~2016-11-02 08:56] MED LIST: ALPRAZolam 0.25 MG TAB PO ONE
[2016-11-02 09:38] VITALS: RESP 14; TEMP 97.9
[2016-11-02 09:46] LABS: Mean Platelet Volume 8.6
[2016-11-02 09:57] LABS: INR 1.2 (<1.2); Prothrombin Time 12.2 sec (9.0-12.0)
[2016-11-02 10:28] LABS: Carbon Dioxide 27 mmol/L (22-30); Chloride 102 mmol/L (98-107); Glucose 157 mg/dL (74-99); Sodium 136 mmol/L (137-145)
[2016-11-02 10:29] LABS: ALT 25 U/L (9-52); AST 22 U/L (14-36); Alkaline Phosphatase 75 U/L (38-126); Anion Gap 7 mmol/L; Blood Urea Nitrogen 24 mg/dL (7-17); Calcium 12.2 mg/dL (8.4-10.2); Non-African American GFR(MDRD) >60 (>60 ml/min/1.73 sqM); Total Bilirubin 0.3 mg/dL (0.2-1.3)
[2016-11-02] MEDS ORDERED: HYDROcodone/APAP 5-325MG 1 EACH TAB PO STA (10:59)
[2016-11-02 11:00] VITALS: PULSE 74
--- NOTE | 2016-11-02 11:17 | XR ---
EXAMINATION TYPE: XR chest 1V DATE OF EXAM: 11/02/2016 HISTORY: Status post right lung biopsy COMPARISON: 10/15/2016 TECHNIQUE: Single view of the chest is submitted. FINDINGS: There is no evidence for right-sided pneumothorax. Demonstrated are scattered senescent parenchymal change. Right upper lobe masses demonstrated. The heart is stable. Hilar and mediastinal structures are within normal limits. Degenerative changes are seen of the dorsal spine. IMPRESSION: 1. No evidence for right-sided pneumothorax.
--- NOTE | 2016-11-02 12:04 | CT ---
EXAMINATION TYPE: CT biopsy lung RT DATE OF EXAM: 11/02/2016 COMPARISON: 10/16/2016 HISTORY: Right upper lobe lung mass CT DLP: 2281 mGycm The procedure is discussed with the patient, the risks, complications, benefits and alternatives, wer e discussed and any questions were answered. Informed consent was obtained. The patient is placed p catherine on the CT table, prepped and draped in the usual sterile fashion. Utilizing a 22-gauge Chiba needle access into the right upper lobe mass was achieved with 3 samples o btained. Pathology could not confirm adequate sample. Therefore, an 18-gauge core biopsy sample was obtained. All elements of maximal barrier and sterile technique were utilized. The patient remained stable thr oughout the procedure with no immediate postprocedural complication. IMPRESSION: 1. Successful CT guided fine needle aspiration and core biopsy of a right upper lobe lobe lung mass
--- NOTE | 2016-11-02 13:18 | XR ---
EXAMINATION TYPE: XR chest 1V DATE OF EXAM: 11/02/2016 HISTORY: Status post biopsy COMPARISON: 10/31/2016 TECHNIQUE: Single view of the chest is submitted. FINDINGS: No evidence for right-sided pneumothorax. Right upper lobe mass is again noted. The heart is stable. Hilar and mediastinal structures are within normal limits. Degenerative changes are seen of the dorsal spine. IMPRESSION: 1. No evidence for pneumothorax in a patient who is status post biopsy.
[2016-11-02 14:55] VITALS: BP 109/55
== END 2016-11-02 13:30 | disposition home or self-care (01) ==
LOC: RADPROMAIN 08:56
PROVIDERS: ATTEND Internal Medicine Critical Care Medicine
DX: C34.11 Malignant neoplasm of upper lobe, right bronchus or lung (principal)
CPT/HCPCS: 10022; 71010; 77012; 80053; 83735; 85049; 85610; 88173; 88305; 88341; 88342

== ENCOUNTER → 2016-11-19 | Outpatient (CLI) | payer MEDICARE, BC ==
--- NOTE | 2016-11-19 11:43 | MR ---
EXAMINATION TYPE: MR brain wo/w con DATE OF EXAM: 11/19/2016 COMPARISON: NONE HISTORY: [place], lung CA TECHNIQUE: Multiplanar, multisequence images of the brain and brainstem is performed without and with IV contras t, utilizing 5.5 mL intravenous Gadavist . FINDINGS: There is no diagnostic evidence of acute ischemia. Linear area of enhancement involving the left temp oral lobe suggestive of a venous angioma. There is a 5 mm ring-enhancing lesion along the dural surface to the right of the anterior interhemis pheric fissure. This is too small to characterize.. No midline shift. Mild to moderate generalized degenerative change. Multiple areas of abnormal signal in the white dori er are nonspecific but most typical remote microvascular ischemia. Vertebral basilar system is somewhat diminutive. Changes of chronic mastoiditis noted. Sella turcica has a normal appearance. No evidence of cerebellopontine angle mass. IMPRESSION: 1. 5 mm area of enhancement along the dura paramedian to the right is too small to characterize. Deangelo mmend short-term follow-up to confirm stability and determine whether this is related to a small extr a-axial mass. 2. Mild degenerative change with nonspecific white matter changes most typical remote microvascular i schemia.
== END | disposition home or self-care (01) ==
LOC: RADMRIMAIN 10:15
PROVIDERS: ATTEND Internal Medicine Hematology & Oncology
DX: C34.90 Malignant neoplasm of unspecified part of unspecified bronchus or lung (principal); G31.9 Degenerative disease of nervous system, unspecified; R90.82 White matter disease, unspecified
CPT/HCPCS: 70553; A9581

== ENCOUNTER → 2017-02-26 | Outpatient (CLI) | payer MEDICARE, BC ==
--- NOTE | 2017-02-27 12:17 | PE ---
Nuclear medicine PET/CT HISTORY: Lung cancer, C 34.11, subsequent Patient received 13.6 mCi F-18 FDG intravenously in delayed scanning was performed from the skull bas e to the mid thighs. Localization and attenuation correction CT scan was performed. Exam is correlate d to prior nuclear medicine PET/CT 10/16/2016 Neck and chest: The right upper lobe lung mass seen on previous exam abuts the mediastinum, anterior pleural margin in the right hemithorax towards the apex measures approximately 4.2 cm in greatest AP dimension by 3.3 cm in transverse dimension and extends towards the right hilum, hypermetabolic uptak e is diminished as compared to previous exam, only mild uptake is noted. There is a right lower lobe nodule present posteriorly measuring approximately 14 mm in the subpleural location which show some m ild hypermetabolic uptake which was not seen on prior possibly due to patient's previously identified pleural effusion at this level, additional pulmonary nodule present along the right hemidiaphragm me asures only 8 to 9 mm and does not show appreciable uptake. The abnormal soft tissue along the medias tinum bilaterally shows a similar appearance to prior and may be related to radiation port. Basilar s carring suspected within the lungs as on prior, questionable subpleural nodule in the left lower lobe without clear hypermetabolic uptake, axial image 44. Small pericardial effusion has developed in the interval. Abdomen pelvis: No evident adrenal mass. No lung mass. No retroperitoneal adenopathy or suspicious hy permetabolic uptake. Calcifications are noted within the spleen. Some bowel uptake in the pelvis felt likely to be physiologic. Stomach again shows a thickened wall which is nonspecific. Inferior vena c deborah filter is again noted. Osseous structures: The uptake noted along the anterior left rib fractures is only mild and less cons picuous than on prior exam. Her coronary artery calcifications present. Benign-appearing calcificatio n in the right axilla, postop changes again noted. IMPRESSION: Improvement in right upper lobe lung mass as described. Hypermetabolic right lower lobe l jhonatan nodule and additional lung nodule as described not seen on prior, metastatic disease not excluded . Additional findings above.
== END | disposition home or self-care (01) ==
LOC: RADPETMAIN 09:39
PROVIDERS: ATTEND Internal Medicine Hematology & Oncology
DX: C34.11 Malignant neoplasm of upper lobe, right bronchus or lung (principal); R91.1 Solitary pulmonary nodule
CPT/HCPCS: 78815; A9552

== ENCOUNTER 2017-06-01 12:38 | Inpatient (IN) | payer MEDICARE, BC ==
[2017-06-01 13:25] LABS: Basophils % (A) 0 %; Eosinophils # (A) 0.1 k/uL (0-0.7); Eosinophils % (A) 2 %; HCT 39.5 % (34.0-46.0); HGB 12.5 gm/dL (11.4-16.0); Lymphocytes # (A) 0.5 k/uL (1.0-4.8); Lymphocytes % (A) 6 %; MCH 27.9 pg (25.0-35.0); MCHC 31.6 g/dL (31.0-37.0); MCV 88.4 fL (80.0-100.0); Mean Platelet Volume 7.5; Monocytes # (A) 0.7 k/uL (0-1.0); Monocytes % (A) 8 %; Neutrophils # (A) 7.8 k/uL (1.3-7.7); Neutrophils % (A) 84 %; Platelet Count 305 k/uL (150-450); RBC 4.47 m/uL (3.80-5.40); RDW 14.6 % (11.5-15.5); WBC 9.3 k/uL (3.8-10.6)
--- NOTE | 2017-06-01 13:28 | XR ---
EXAMINATION TYPE: XR chest 2V DATE OF EXAM: 06/01/2017 COMPARISON: 11/02/2016 INDICATION: Chest pain and tachycardia TECHNIQUE: Frontal and lateral views of the chest are obtained. FINDINGS: The heart size is normal. The pulmonary vasculature is normal. There is a right upper lobe consolidation. Correlate for pneumonia. There are some patchy density wit hin the right lung. Correlate for pneumonia. Previous right upper lobe mass not as well identified. P ulmonary nodules should be considered. This could be rib ends. Findings are changed. Some nodules cyndee ear to be within the right lower lung field. Stable right axillary nodularity is present.. There is blunting of the right costophrenic angle compatible with small right pleural effusion. IMPRESSION: 1. Development of pulmonary nodules. CT chest recommended for additional evaluation. 2. Right upper lobe consolidation. Correlate for pneumonia. 3. Small right pleural effusion
[2017-06-01 13:32] LABS: INR 2.8 (<1.2); Prothrombin Time 25.4 sec (9.0-12.0)
[2017-06-01 13:38] LABS: ALT 19 U/L (9-52); AST 11 U/L (14-36); Albumin 3.7 g/dL (3.5-5.0); Alkaline Phosphatase 106 U/L (38-126); Anion Gap 9 mmol/L; Blood Urea Nitrogen 18 mg/dL (7-17); Carbon Dioxide 28 mmol/L (22-30); Chloride 101 mmol/L (98-107); Glucose 93 mg/dL (74-99); Lipase 16 U/L (23-300); Magnesium 1.8 mg/dL (1.6-2.3); Sodium 138 mmol/L (137-145); Total Bilirubin 0.3 mg/dL (0.2-1.3); Total Protein 6.4 g/dL (6.3-8.2)
[2017-06-01] MEDS ORDERED: CEFEPIME 1 GM in SODIUM CHLORIDE 0.9% 50 ML IVPB STA (14:14)
[2017-06-01] MEDS ORDERED: VANCOMYCIN IV PER PHARMACY 1 EACH MISC MISCELLANE PRN (14:14)
[2017-06-01] MEDS ORDERED: NALOXONE 0.4 MG/ML 1 ML VIAL IV PRN (14:17)
--- NOTE | 2017-06-01 14:17 | ED ---
General Adult HPI - General Chief complaint: Chest Pain Stated complaint: abnormal EKG Time Seen by Provider: 06/01/17 12:44 Source: patient Mode of arrival: wheelchair Limitations: no limitations - History of Present Illness Initial comments: Patient complains of shortness of breath. She has some tightness in the chest as well. Her symptoms have been getting worse for couple days. Nothing makes the symptoms better or worse. She has taken no medication for this. She was not doing anything when she began to feel this way. She does have a history of lung cancer. She denies palpitations. She has no pain or swelling in the arms or legs. - Related Data Home Medications Medication Instructions Recorded Confirmed Fenofibrate 160 mg PO HS 11/27/14 11/02/16 Multivitamins, Thera [Multivitamin 1 tab PO HS 11/27/14 11/02/16 (formulary)] PARoxetine HCL 30 mg PO HS 11/27/14 11/02/16 Pantoprazole Sodium 40 mg PO DAILY 11/27/14 11/02/16 Simvastatin [Zocor] 20 mg PO HS 11/27/14 11/02/16 Krill/Om-3/Dha/Epa/Phospho/Ast 1 cap PO DAILY 09/16/15 10/26/16 [[place]-3 Krill Oil 300 mg Sfgl] Vit C/E/Zn/Coppr/Lutein/Zeaxan 1 cap PO BID 09/16/15 11/02/16 [Preservision Areds 2 Softgel] Warfarin Sodium 2.5 mg PO DAILY 09/26/15 10/26/16 sitaGLIPtin PHOSPHATE [Januvia] 100 mg PO DAILY 09/26/15 11/02/16 Atenolol [Tenormin] 25 mg PO BID 10/12/16 11/02/16 Cholecalciferol [Vitamin D3] 2,000 unit PO DAILY 10/12/16 11/02/16 Magnesium Gluconate [Magonate] 400 mg PO BID 10/12/16 11/02/16 ALPRAZolam [Xanax] 0.25 mg PO Q4H PRN 10/19/16 10/26/16 Acetaminophen Tab [Tylenol Tab] 1,000 mg PO Q6HR PRN 10/19/16 10/26/16 Calcium 500mg 500 mg PO DAILY 10/19/16 11/02/16 HYDROcodone/APAP 5-325MG [[place] 1 tab PO Q6H PRN 10/19/16 10/26/16 5-325] hydrALAZINE HCL [Hydralazine HCl] 25 mg PO BID 10/19/16 11/02/16 Allergies Allergy/AdvReac Type Severity Reaction Status Date / Time Iodinated Contrast- Oral and Allergy Severe Anaphylaxis Verified 06/01/17 12:42 IV Dye [Iodinated Contrast Media - IV Dye] codeine Allergy Rash/Hives Verified 06/01/17 12:42 metaxalone [From Skelaxin] Allergy Rash/Hives Verified 06/01/17 12:42 oxycodone HCl [From Percocet] Allergy Rash/Hives Verified 06/01/17 12:42 clopidogrel bisulfate AdvReac Headache Verified 06/01/17 12:42 [From Plavix] Review of Systems ROS Statement: Those systems with pertinent positive or pertinent negative responses have been documented in the HPI. ROS Other: All systems not noted in ROS Statement are negative. 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 and the patient has an IVC filter in place, coronary artery disease with previous coronary intervention and stenting, hyperlipidemia, previous history of GI bleed, obstructive sleep apnea, acid reflux, 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, diabetes mellitus History of Any Multi-Drug Resistant Organisms: MRSA Date of last positivie culture/infection: 2011 MDRO Source:: leg Past Surgical History: Adenoidectomy, Breast Surgery, Cholecystectomy, Heart Catheterization With Stent, Hysterectomy, Tonsillectomy Additional Past Surgical History / Comment(s): yamilex filter, mediastinoscopy, cyst removed from rt breast, gene leg surgery for thorn removal , implantable device for paralyzed vocal cord Past Anesthesia/Blood Transfusion Reactions: No Reported Reaction Date of Last Stent Placement:: 05/16/2007 Past Psychological History: No Psychological Hx Reported Smoking Status: Current every day smoker Past Alcohol Use History: None Reported Past Drug Use History: None Reported - Past Family History Father History Unknown: Yes Additional Family Medical History / Comment(s): multiple sclreosis and heart disease. after heart cath at age 49 Mother History Unknown: Yes Family Medical History: Diabetes Mellitus, Hyperlipidemia, Hypertension Additional Family Medical History / Comment(s): heart disease Sister(s) History Unknown: Yes Family Medical History: Cancer Additional Family Medical History / Comment(s): breast Cancer. Multiple sclreosis General Exam Limitations: no limitations General appearance: alert, in no apparent distress Head exam: Present: atraumatic, normocephalic, normal inspection Eye exam: Present: normal appearance, PERRL, EOMI. Absent: scleral icterus, conjunctival injection, periorbital swelling ENT exam: Present: normal exam, mucous membranes moist Neck exam: Present: normal inspection. Absent: tenderness, meningismus, lymphadenopathy Respiratory exam: Present: normal lung sounds bilaterally. Absent: respiratory distress, wheezes, rales, rhonchi, stridor Cardiovascular Exam: Present: regular rate, normal rhythm, normal heart sounds. Absent: systolic murmur, diastolic murmur, rubs, gallop, clicks GI/Abdominal exam: Present: soft, normal bowel sounds. Absent: distended, tenderness, guarding, rebound, rigid Extremities exam: Present: normal inspection, full ROM, normal capillary refill. Absent: tenderness, pedal edema, joint swelling, calf tenderness Back exam: Present: normal inspection Neurological exam: Present: alert, oriented X3, CN II-XII intact Psychiatric exam: Present: normal affect, normal mood Skin exam: Present: warm, dry, intact, normal color. Absent: rash Course Vital Signs 06/01/17 12:40 Temperature 98.3 F Pulse Rate 107 H Respiratory 20 Rate Blood Pressure 92/54 O2 Sat by Pulse 96 Oximetry EKG Findings - EKG Comments: EKG Findings:: Twelve-lead EKG shows ventricular 101 bpm, normal GA interval and QRS complex is, no ST elevation or depression, interpreted by me as sinus tachycardia. Medical Decision Making - Medical Decision Making Patient presents with shortness of breath, tightness in the chest. Troponin is negative. She is tachycardic. Her blood pressure was slightly low. Chest x- ray reveals pneumonia. Therefore I will start the patient on antibiotics. I sent blood cultures. I consult the pulmonology. She will be admitted to the hospital. - Lab Data Result diagrams: 06/01/17 13:05 06/01/17 13:05 Lab Results 06/01/17 06/01/17 06/01/17 Range/Units 13:05 13:05 13:05 WBC 9.3 (3.8-10.6) k/uL RBC 4.47 (3.80-5.40) m/uL Hgb 12.5 (11.4-16.0) gm/dL Hct 39.5 (34.0-46.0) % MCV 88.4 (80.0-100.0) fL MCH 27.9 (25.0-35.0) pg MCHC 31.6 (31.0-37.0) g/dL RDW 14.6 (11.5-15.5) % Plt Count 305 (150-450) k/uL Neutrophils % 84 % Lymphocytes % 6 % Monocytes % 8 % Eosinophils % 2 % Basophils % 0 % Neutrophils # 7.8 H (1.3-7.7) k/uL Lymphocytes # 0.5 L (1.0-4.8) k/uL Monocytes # 0.7 (0-1.0) k/uL Eosinophils # 0.1 (0-0.7) k/uL Basophils # 0.0 (0-0.2) k/uL PT (9.0-12.0) sec INR (<1.2) APTT (22.0-30.0) sec Sodium 138 (137-145) mmol/L Potassium 5.0 (3.5-5.1) mmol/L Chloride 101 (98-107) mmol/L Carbon Dioxide 28 (22-30) mmol/L Anion Gap 9 mmol/L BUN 18 H (7-17) mg/dL Creatinine 0.76 (0.52-1.04) mg/dL Est GFR (CKD-EPI)AfAm >90 (>60 ml/min/1.73 sqM) Est GFR (CKD-EPI)NonAf 81 (>60 ml/min/1.73 sqM) Glucose 93 (74-99) mg/dL Calcium 11.0 H (8.4-10.2) mg/dL Magnesium 1.8 (1.6-2.3) mg/dL Total Bilirubin 0.3 (0.2-1.3) mg/dL AST 11 L (14-36) U/L ALT 19 (9-52) U/L Alkaline Phosphatase 106 (38-126) U/L Troponin I (0.000-0.034) ng/mL NT-Pro-B Natriuret Pep 473 pg/mL Total Protein 6.4 (6.3-8.2) g/dL Albumin 3.7 (3.5-5.0) g/dL Lipase 16 L (23-300) U/L 06/01/17 06/01/17 Range/Units 13:05 13:05 WBC (3.8-10.6) k/uL RBC (3.80-5.40) m/uL Hgb (11.4-16.0) gm/dL Hct (34.0-46.0) % MCV (80.0-100.0) fL MCH (25.0-35.0) pg MCHC (31.0-37.0) g/dL RDW (11.5-15.5) % Plt Count (150-450) k/uL Neutrophils % % Lymphocytes % % Monocytes % % Eosinophils % % Basophils % % Neutrophils # (1.3-7.7) k/uL Lymphocytes # (1.0-4.8) k/uL Monocytes # (0-1.0) k/uL Eosinophils # (0-0.7) k/uL Basophils # (0-0.2) k/uL PT 25.4 H (9.0-12.0) sec INR 2.8 H (<1.2) APTT 36.0 H (22.0-30.0) sec Sodium (137-145) mmol/L Potassium (3.5-5.1) mmol/L Chloride (98-107) mmol/L Carbon Dioxide (22-30) mmol/L Anion Gap mmol/L BUN (7-17) mg/dL Creatinine (0.52-1.04) mg/dL Est GFR (CKD-EPI)AfAm (>60 ml/min/1.73 sqM) Est GFR (CKD-EPI)NonAf (>60 ml/min/1.73 sqM) Glucose (74-99) mg/dL Calcium (8.4-10.2) mg/dL Magnesium (1.6-2.3) mg/dL Total Bilirubin (0.2-1.3) mg/dL AST (14-36) U/L ALT (9-52) U/L Alkaline Phosphatase (38-126) U/L Troponin I <0.012 (0.000-0.034) ng/mL NT-Pro-B Natriuret Pep pg/mL Total Protein (6.3-8.2) g/dL Albumin (3.5-5.0) g/dL Lipase (23-300) U/L Disposition Clinical Impression: History of lung cancer, Pneumonia Disposition: ADMITTED IP TO THIS HOSP Condition: Serious Is patient prescribed a controlled substance at discharge?: No Referrals: Indio Alba Jr, DO [Primary Care Provider] - 1-2 days
[2017-06-01] MEDS ORDERED: VANCOMYCIN 1,250 MG in SODIUM CHLORIDE 0.9% 250 ML IVPB ONE (15:00)
[2017-06-01] MEDS ORDERED: ACETAMINOPHEN TAB 500 MG TAB PO PRN (16:37)
[2017-06-01] MEDS: HYDROcodone/APAP 5-325MG 1 EACH TAB PO PRN (16:45)
[2017-06-01 16:47] LABS: Appearance,Urine Clear (Clear); Bilirubin,Urine Negative (Negative); Blood,Urine Negative (Negative); Color,Urine Light Yellow; Glucose,Urine (UA) Negative (Negative); Ketones,Urine Negative (Negative); Leukocyte Esterase,Urine Negative (Negative); Nitrite,Urine Negative (Negative); Protein,Urine Negative (Negative); Specific Gravity,Urine 1.009 (1.001-1.035); Urobilinogen,Urine <2.0 mg/dL (<2.0)
[2017-06-01] MEDS: ATORVASTATIN 10 MG TAB PO SCH (20:45)
[2017-06-01] MEDS: ATENOLOL 25 MG TAB PO SCH (20:45)
[2017-06-01] MEDS: FENOFIBRATE 160 MG TAB PO SCH (20:46)
[2017-06-01] MEDS: FAMOTIDINE 20 MG TAB PO SCH (20:46)
[2017-06-01] MEDS: PARoxetine 10 MG TAB PO SCH (20:46)
[2017-06-02] MEDS ORDERED: VANCOMYCIN 1,000 MG in SODIUM CHLORIDE 0.9% 250 ML IVPB SCH ×2
[2017-06-02] MEDS: HYDROcodone/APAP 5-325MG 1 EACH TAB PO PRN ×2 (03:58→12:15)
[2017-06-02] MEDS: FAMOTIDINE 20 MG TAB PO SCH ×3 (07:40→22:22)
[2017-06-02] MEDS: ATENOLOL 25 MG TAB PO SCH ×3 (07:40→23:08)
[2017-06-02] MEDS: LINAGLIPTIN 5 MG TABLET PO SCH (07:41)
[2017-06-02 08:00] LABS: Glucose,Whole Blood 125 mg/dL (75-99)
[2017-06-02] MEDS ORDERED: RX INFO: IV CONTRAST WAS GIVEN 1 EACH MISC MISCELLANE PRN (11:06)
[2017-06-02] MEDS ORDERED: methylPREDNISolone SOD SUCCI 125 MG/2 ML VIAL IV STA (11:12)
[2017-06-02] MEDS ORDERED: diphenhydrAMINE 50 MG/ML 1 ML VIAL IVP STA (11:12)
[2017-06-02] MEDS ORDERED: FAMOTIDINE 20 MG/2 ML VIAL IV STA (11:12)
[2017-06-02 11:56] LABS: Basophils % (A) 0 %; Eosinophils # (A) 0.2 k/uL (0-0.7); Eosinophils % (A) 3 %; HCT 35.4 % (34.0-46.0); HGB 11.1 gm/dL (11.4-16.0); Lymphocytes # (A) 0.5 k/uL (1.0-4.8); Lymphocytes % (A) 7 %; MCH 27.9 pg (25.0-35.0); MCHC 31.4 g/dL (31.0-37.0); MCV 88.8 fL (80.0-100.0); Mean Platelet Volume 7.4; Monocytes # (A) 0.7 k/uL (0-1.0); Monocytes % (A) 9 %; Neutrophils % (A) 80 %; Platelet Count 266 k/uL (150-450); RBC 3.98 m/uL (3.80-5.40); RDW 14.6 % (11.5-15.5); WBC 7.5 k/uL (3.8-10.6)
[2017-06-02] MEDS: LEVOFLOXACIN 750 MG TAB PO SCH (12:13)
[2017-06-02] MEDS: MAGNESIUM OXIDE 400 MG TAB PO SCH (12:13)
[2017-06-02 12:28] LABS: Glucose,Whole Blood 99 mg/dL (75-99)
[2017-06-02 12:31] LABS: Anion Gap 9 mmol/L; Blood Urea Nitrogen 16 mg/dL (7-17); Calcium 10.8 mg/dL (8.4-10.2); Carbon Dioxide 27 mmol/L (22-30); Chloride 101 mmol/L (98-107); Glucose 99 mg/dL (74-99); Magnesium 1.6 mg/dL (1.6-2.3); Potassium 4.8 mmol/L (3.5-5.1); Sodium 137 mmol/L (137-145)
--- NOTE | 2017-06-02 12:33 | P.CNPUL ---
History of Present Illness Consult date: 06/02/17 Reason for consult: dyspnea, chest pain History of present illness: This 71 female patient who has has history of non-small cell lung cancer that was diagnosed and treated 15 years ago and she patient was given a concurrent chemoradiation therapy with excellent clinical response without any recurrence. Her original mass was on the left. She subsequently was found to have a right upper lobe mass and furthermore a CAT scan of the chest was done and showed a 3.6 x 4 x 4.4 cm masslike lesion the right upper lobe. I performed a bronchoscopy on this patient. I was unable to reach the right upper lobe. Examination of the left side showed a vague lesion obstructing the lingular segment however this negative turner apprentice to be a benign finding and there was no evidence of malignancy, probably a post radiation scar. The patient however does not have it final diagnosis yet. One other concern is that the patient has history of vocal cord paralysis for which she has placed a implant many years back. Following the bronchoscopy the patient had significant stridorous breathing for which she had to be bagged for almost 20-30 minutes and ultimately her pulmonary status stabilized and the patient did not had to be reintubated. The concern of postanesthesia upper airway obstruction is quite high in this patient based on my findings. The cords are still somewhat weak and in a adducted position. A pulmonary function test was done today and the patient's FEV1 is 76% of predicted. Total lung capacities 85% and diffusion capacity 68%. There may be some flattening of the expiratory arm and the respiratory arm of the flow volume loop curve which could be potentially related to the vocal cords partial paralysis. In follow-up, the patient was referred to interventional radiology for a fine-needle aspirate of the right upper lobe mass. The results came back positive for squamous cell carcinoma. The disease was locally advanced non-small cell lung cancer. Based on the fact that the mass itself with extending to the mediastinum and the probably is considered to be stage IIIa. I did not think she'll be a good candidate for surgical resection. She had already taken radiation therapy in the past. Based on her previous history of adenocarcinoma of the lung and I'm not sure if she is going to be able to handle some more radiation therapy. We will discuss the chemotherapy regimen versus target therapy with Dr. Cardona. The patient seeked a second opinion through Dr. Bean at [facility]. Based on that evaluation, the patient was started on systemic chemotherapy. She was not found to be a candidate for immunotherapy based on Dr. Bean's evaluation. She received regular systemic chemotherapy. A follow-up CAT scan was done on any showed significant reduction in the right upper lobe lesion and it used to measure 4.2 with centimeters in its largest dimension and is currently down to 1.4 cm and there is some mild metabolic activity within the lesion. There is 2 other nodules measuring only 8-9 mm in size in the LLLt lung base significance of these are not known, and abnormal soft tissue mass along the mediastinum showed a similar appearance compared to the previous imaging. Yesterday, the patient presented emergency department because of new onset pain across her chest mainly over the right lateral chest area and some in the left lateral chest area along with some increased cough congestion. No significant sputum production. No hemoptysis. No fever chills or night sweats. The chest x-ray was done and again there was a right upper lobe opacity. Nevertheless there was some no other lesions on the left which raised further suspicion for tumor progression. The patient is currently resting comfortably in bed. No altered mentation. 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 She is currently on antibiotics. No altered mentation. No falls. No other complaints otherwise for now. Her current white cell count is at 7.5. Influenza screen was negative. She is on long-term and to coagulation with warfarin regarding previous history of pulmonary embolism. She is on [place] for pain control. INR was therapeutic at time of admission. Review of Systems Comprehensive General Adult ROS Reported by Patient Constitutional Constitutional: no fever, no night sweats, no significant weight gain, no significant weight loss, no exercise intolerance (Weakness attributed to magnesemia) Eyes Eyes: no dry eyes, no vision change, no irritation ENMT Ears: no difficulty hearing, no ear pain Nose: no frequent nosebleeds, no nose problems, no sinus problems Mouth/Throat: no sore throat, no bleeding gums, no snoring, no dry mouth, no mouth ulcers, no oral abnormalities, no teeth problems (Keenan courses related to vocal cord weakness/paralysis of the vocal cords.) Cardiovascular Cardiovascular: chest pain, no arm pain on exertion, no shortness of breath when walking, no shortness of breath when lying down, no palpitations, no known heart murmur Respiratory Respiratory: no cough, no wheezing, no coughing up blood, no sleep apnea, shortness of breath Gastrointestinal Gastrointestinal: no abdominal pain, no nausea, no vomiting, no constipation, normal appetite, no diarrhea, not vomiting blood, no dyspepsia, no GERD Genitourinary Genitourinary: no incontinence, no difficulty urinating, no hematuria, no increased frequency Musculoskeletal Musculoskeletal: no muscle aches, no muscle weakness, no arthralgias/joint pain , no back pain, no swelling in the extremities Integumentary Skin: no abnormal mole, no jaundice, no rashes, no laceration Neurologic Neurologic: no loss of consciousness, no weakness, no numbness, no seizures, no dizziness, no migraines, no headaches, no tremor Psychiatric Psych: no depression, no sleep disturbances, feeling safe in a relationship, no alcohol abuse, no anxiety, no hallucinations, no suicidal thoughts Endocrine Endocrine: no fatigue Hematologic/Lymphatic Hematologic/Lymphatic no swollen glands, no bruising, no excessive bleeding Allergic/Immunologic Allergy/Immunologic: no runny nose, no sinus pressure, no itching, no hives, no frequent sneezing Past Medical History Past Medical History: Coronary Artery Disease (CAD), Cancer, COPD, Diabetes Mellitus, Deep Vein Thrombosis (DVT), GERD/Reflux, GI Bleed, Hyperlipidemia, Musculoskeletal Disorder, Pneumonia, Sleep Apnea/CPAP/BIPAP Additional Past Medical History / Comment(s): Non-small cell lung cancer diagnosed and treated 17 years ago with a concurrent chemo/radiation therapy. Locally advanced squamous cell carcinoma of the right upper lobe therapy in 2017 had needle/core bx of lung and found a different type of cancer-completed radiation and a chemo in dec 2016. 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 History of Any Multi-Drug Resistant Organisms: MRSA Date of last positivie culture/infection: 2011 MDRO Source:: rt leg Past Surgical History: Adenoidectomy, Cholecystectomy, Heart Catheterization With Stent, Hysterectomy, Tonsillectomy Additional Past Surgical History / Comment(s): yamilex filter, mediastinoscopy, cyst removed from rt breast, gene leg surgery for thorn removal ( fell into [employer] plant), implantable device for paralyzed vocal cord.brochoscopy Past Anesthesia/Blood Transfusion Reactions: No Reported Reaction Additional Past Anesthesia/Blood Transfusion Reaction / Comment(s): never had blood transfusion Date of Last Stent Placement:: 05/16/2007 Smoking Status: Current every day smoker - Past Family History Father History Unknown: Yes Additional Family Medical History / Comment(s): multiple sclreosis and heart disease. after heart cath at age 49 Mother History Unknown: Yes Family Medical History: Diabetes Mellitus, Hyperlipidemia, Hypertension Additional Family Medical History / Comment(s): heart disease Sister(s) History Unknown: Yes Family Medical History: Cancer Additional Family Medical History / Comment(s): breast Cancer. Multiple sclreosis Medications and Allergies Home Medications Medication Instructions Recorded Confirmed Type PARoxetine HCL 30 mg PO HS 11/27/14 06/01/17 History Pantoprazole Sodium 40 mg PO DAILY 11/27/14 06/01/17 History Krill/Om-3/Dha/Epa/Phospho/Ast 1 cap PO DAILY 09/16/15 06/01/17 History [[place]-3 Krill Oil 300 mg Sfgl] Vit C/E/Zn/Coppr/Lutein/Zeaxan 1 cap PO BID 09/16/15 06/01/17 History [Preservision Areds 2 Softgel] Warfarin Sodium 2.5 mg PO DAILY 09/26/15 06/01/17 History sitaGLIPtin PHOSPHATE [Januvia] 100 mg PO DAILY 09/26/15 06/01/17 History Cholecalciferol [Vitamin D3] 2,000 unit PO DAILY 10/12/16 06/01/17 History ALPRAZolam [Xanax] 0.25 mg PO TID PRN 10/19/16 06/01/17 History Acetaminophen Tab [Tylenol Tab] 1,000 mg PO Q6HR PRN 10/19/16 06/01/17 History HYDROcodone/APAP 5-325MG [[place] 1 tab PO Q6H PRN 10/19/16 06/01/17 History 5-325] Nitroglycerin Sl Tabs [Nitrostat] 0.4 mg SUBLINGUAL Q5M PRN 06/01/17 06/01/17 History Allergies Allergy/AdvReac Type Severity Reaction Status Date / Time Iodinated Contrast- Oral and Allergy Severe Anaphylaxis Verified 06/01/17 14:19 IV Dye [Iodinated Contrast Media - IV Dye] codeine Allergy Rash/Hives Verified 06/01/17 14:19 metaxalone [From Skelaxin] Allergy Rash/Hives Verified 06/01/17 14:19 oxycodone HCl [From Percocet] Allergy Rash/Hives Verified 06/01/17 14:19 clopidogrel bisulfate AdvReac Headache Verified 06/01/17 14:19 [From Plavix] Physical Exam Vitals: Vital Signs Temp Pulse Pulse Resp BP BP Pulse Ox 06/02/17 08:00 97 06/02/17 07:45 92 18 06/02/17 07:00 96.8 F L 92 18 118/63 96 06/01/17 23:00 98.6 F 101 H 24 105/61 92 L 06/01/17 17:28 98 06/01/17 15:58 18 06/01/17 15:30 97.4 F L 95 16 121/64 96 06/01/17 15:12 98.8 F 96 18 134/64 99 06/01/17 14:42 95 20 138/79 98 06/01/17 13:40 97.6 F 99 18 142/78 98 06/01/17 12:40 98.3 F 107 H 20 92/54 96 Intake and Output 06/01/17 06/02/17 06/02/17 22:59 06:59 14:59 Other: # Voids 2 Weight 53.524 kg General Appearance no diaphoresis, no respiratory distress, speech not interrupted by breaths, no dyspnea, no pallor, not cachectic, well nourished, appears well HEENT no pursed lip breathing, no jugular venous distention, no mucous membrane cyanosis, no perioral cyanosis, mallampati classification: class 1 Chest no barrel chest, no retractions, no sternocleidomastoid muscle contractions, no supraclavicular retractions, no intercostal retractions, no prolonged expiratory wheezing, no decreased air movement, no rhonchi, no hyperinflation, decreased air movement Heart no right ventricular heave, no distant heart sounds, no s3 gallop, (normal ) jugular vein: jugular venous distention: by 0cm, Murmurs: Unspecified Location : Systolic: Grade 4 / IV GI bowel sounds: hyperactive (borborygmi), bowel sounds: diminished or absent Extremities no cyanosis, no clubbing, no edema Neurologic no decreased mental status, no somnolence, no confusion General Appearance normal, (normal) normal except as noted Results - Laboratory Findings CBC and BMP: 06/02/17 11:14 06/01/17 13:05 PT/INR, D-dimer PT 25.4 sec (9.0-12.0) H 06/01/17 13:05 INR 2.8 (<1.2) H 06/01/17 13:05 Abnormal lab findings: Abnormal Labs 06/01/17 06/01/17 06/01/17 13:05 13:05 13:05 Hgb Neutrophils # 7.8 H Lymphocytes # 0.5 L PT 25.4 H INR 2.8 H APTT 36.0 H BUN 18 H POC Glucose (mg/dL) Calcium 11.0 H AST 11 L Lipase 16 L 06/02/17 06/02/17 07:46 11:14 Hgb 11.1 L Neutrophils # Lymphocytes # 0.5 L PT INR APTT BUN POC Glucose (mg/dL) 125 H Calcium AST Lipase - Diagnostic Findings Chest x-ray: image reviewed Assessment and Plan Plan: Assessment 1 squamous cell carcinoma of the right upper lobe. The patient was diagnosed having a locally advanced squamous cell carcinoma, stage history and the patient completed chemoradiation therapy without any major complication and subsequent PET/CT showed significant reduction the right upper lobe and this was done and February 2017. There was some nonspecific 8-9 mm left lower lobe lesions the significance of which was not known and the patient did not show any significant activity within that area on the PET scan. 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 3 COPD with a baseline FEV1 of 76% of predicted 4 history of vocal cord paralysis, partial 5 non-small cell lung cancer and the patient was treated with chemoradiation therapy and she has been in remission for more than 5:15 years regarding her non -small cell lung cancer 6 coronary artery disease 7 diabetes mellitus 8 history of DVT status post IVC filter placement and the patient is on anticoagulation with therapeutic PT/INR 9 hyperlipidemia 10 previous history of GI bleeding 11 coronary artery disease previous coronary stenting 12 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 Continue Levaquin. Continue Coumadin. We'll follow
[2017-06-02 15:31] LABS: Hemoglobin A1C 6.9 % (4.0-6.0)
--- NOTE | 2017-06-02 15:40 | P.HPIM ---
<Anna Uribe - Last Filed: 06/02/17 15:22> History of Present Illness H&P Date: 06/02/17 Chief Complaint: Shortness of breath 71-year-old female who presented to the emergency room with a chief complaint of shortness of breath and coughing. Patient states she has been short of breath for approximately 1 month but has increased in severity most recently. Patient states she is frequently coughing and reports sputum production with some occasional blood. The patient has a history of non-small lung cancer that was diagnosed and treated approximately 15 years ago (mass was on the left). She was found to have a right upper lobe mass. Apparently bronchoscopy was performed but pulmonary was unable to reach the mass. She underwent a fine-needle aspirate and results were positive for squamous cell carcinoma. The patient was evaluated by Dr. Bean at [facility]. She underwent chemotherapy. Follow up CT was performed revealing decrease in the size of the mass from 4.2cm down to 1.4cm. She also has a history of coronary artery disease, COPD, diabetes mellitus, DVT , GERD, GI bleed, hyperlipidemia, and sleep apnea. Chest x-ray: Development of pulmonary nodules, right upper lobe consolidation, small right pleural effusion Laboratory data: WBC 9.3. Hemoglobin 12.5. Platelet count 305. PT 25.4. INR 2.8. PTT 36.0. Sodium 138. Potassium 5.0. B UN 18. Creatinine 0.76. Magnesium 1.8 Troponin negative 1. BNP 473. Calcium 11.0 Urinalysis is unremarkable Testing for influenza A/B was negative The patient was admitted to the hospital under the care of Dr. Nava. Consultations were placed to pulmonary. Review of Systems GENERAL: Patient denies fever. Denies chills. EYES: Denies blurred vision. Denies vision changes. Denies eye pain. EARS, NOSE, MOUTH, & THROAT: Denies headache. Denies sore throat. Denies ear pain. RESPIRATORY: Positive for shortness of breath. Positive for cough with sputum production. Positive for occasional bloody sputum. CARDIOVASCULAR: Denies chest pain or pressure. Denies palpitations. Denies arrhythmias. GASTROINTESTINAL: Denies abdominal pain. Denies diarrhea. Denies constipation. Denies nausea. Denies vomiting. Denies heartburn. Denies blood in the stool. GENITOURINARY: Denies urinary frequency. Denies burning. Denies dysuria. Denies cloudy urine. Denies blood in the urine. MUSCULOSKELETAL: Denies myalgias. Denies joint swelling. Denies decreased range of motion beyond patients baseline. INTEGUMENTARY: Denies pruitis. Denies rash. PSYCHIATRIC: Denies suicidal or homicial ideations. ENDOCRINE: Denies weight change. Denies polydipsia. Denies polyuria. HEMATOLOGIC: Denies bleeding disorders. Past Medical History Past Medical History: Coronary Artery Disease (CAD), Cancer, COPD, Diabetes Mellitus, Deep Vein Thrombosis (DVT), GERD/Reflux, GI Bleed, Hyperlipidemia, Musculoskeletal Disorder, Pneumonia, Sleep Apnea/CPAP/BIPAP Additional Past Medical History / Comment(s): Non-small cell lung cancer diagnosed and treated 17 years ago with a concurrent chemo/radiation therapy. 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 History of Any Multi-Drug Resistant Organisms: MRSA Date of last positivie culture/infection: 2011 MDRO Source:: rt leg Past Surgical History: Adenoidectomy, Cholecystectomy, Heart Catheterization With Stent, Hysterectomy, Tonsillectomy Additional Past Surgical History / Comment(s): yamilex filter, mediastinoscopy, cyst removed from rt breast, gene leg surgery for thorn removal ( fell into [employer]), implantable device for paralyzed vocal cord.brochoscopy Past Anesthesia/Blood Transfusion Reactions: No Reported Reaction Additional Past Anesthesia/Blood Transfusion Reaction / Comment(s): never had blood transfusion Date of Last Stent Placement:: 05/16/2007 Smoking Status: Current every day smoker - Past Family History Father History Unknown: Yes Additional Family Medical History / Comment(s): multiple sclreosis and heart disease. after heart cath at age 49 Mother History Unknown: Yes Family Medical History: Diabetes Mellitus, Hyperlipidemia, Hypertension Additional Family Medical History / Comment(s): heart disease Sister(s) History Unknown: Yes Family Medical History: Cancer Additional Family Medical History / Comment(s): breast Cancer. Multiple sclreosis Medications and Allergies Home Medications Medication Instructions Recorded Confirmed Type PARoxetine HCL 30 mg PO HS 11/27/14 06/01/17 History Pantoprazole Sodium 40 mg PO DAILY 11/27/14 06/01/17 History Krill/Om-3/Dha/Epa/Phospho/Ast 1 cap PO DAILY 09/16/15 06/01/17 History [[place]-3 Krill Oil 300 mg Sfgl] Vit C/E/Zn/Coppr/Lutein/Zeaxan 1 cap PO BID 09/16/15 06/01/17 History [Preservision Areds 2 Softgel] Warfarin Sodium 2.5 mg PO DAILY 09/26/15 06/01/17 History sitaGLIPtin PHOSPHATE [Januvia] 100 mg PO DAILY 09/26/15 06/01/17 History Cholecalciferol [Vitamin D3] 2,000 unit PO DAILY 10/12/16 06/01/17 History ALPRAZolam [Xanax] 0.25 mg PO TID PRN 10/19/16 06/01/17 History Acetaminophen Tab [Tylenol Tab] 1,000 mg PO Q6HR PRN 10/19/16 06/01/17 History HYDROcodone/APAP 5-325MG [[place] 1 tab PO Q6H PRN 10/19/16 06/01/17 History 5-325] Nitroglycerin Sl Tabs [Nitrostat] 0.4 mg SUBLINGUAL Q5M PRN 06/01/17 06/01/17 History Allergies Allergy/AdvReac Type Severity Reaction Status Date / Time Iodinated Contrast- Oral and Allergy Severe Anaphylaxis Verified 06/01/17 14:19 IV Dye [Iodinated Contrast Media - IV Dye] codeine Allergy Rash/Hives Verified 06/01/17 14:19 metaxalone [From Skelaxin] Allergy Rash/Hives Verified 06/01/17 14:19 oxycodone HCl [From Percocet] Allergy Rash/Hives Verified 06/01/17 14:19 clopidogrel bisulfate AdvReac Headache Verified 06/01/17 14:19 [From Plavix] Physical Exam Vitals: Vital Signs Temp Pulse Pulse Resp BP BP Pulse Ox 06/02/17 08:00 97 06/02/17 07:45 92 18 06/02/17 07:00 96.8 F L 92 18 118/63 96 06/01/17 23:00 98.6 F 101 H 24 105/61 92 L 06/01/17 17:28 98 06/01/17 15:58 18 06/01/17 15:30 97.4 F L 95 16 121/64 96 06/01/17 15:12 98.8 F 96 18 134/64 99 Intake and Output 06/02/17 06/02/17 06/02/17 06:59 14:59 22:59 Intake Total 440 Balance 440 Intake: Oral 440 Other: # Voids 2 GENERAL: This is a 71-year-old female in no apparent distress at the time of examination. Pleasant and cooperative. HEENT: Head is atraumatic, normocephalic. Pupils are equal, round, and reactive to light. Sclerae anicteric. Conjunctivae are clear. Mucus membranes of the mouth are moist. Neck is supple. RESPIRATORY: Clear to ausculation. No wheezes, rales, or rhonchi. No use of accessory muscles. Patient maintaining oxygen saturation greater than 92%. No chest wall tenderness is noted on palpation or with deep breathing. CARDIOVASCULAR: Regular rate and rhythm. S1 and S2 noted. No JVD noted. No S3 or S4 noted. GASTROINTESTINAL: No distention noted. Abdomen soft and round. Normal active bowel sounds auscultated x 4 quadrants. No pain or tenderness noted upon palpation. INTEGUMENTARY: No cyanosis. No jaundice. No rashes noted. No cellulitis noted. EXTREMITIES: 2+ peripheral pulses. No evidence of peripheral edema. No calf tenderness noted. NEUROLOGIC: Cranial nerves II-XII intact. PSYCHIATRIC: Awake, alert, and oriented X 3. Appropriate affect. Intact judgement and insight. 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 Appreciate recommendations and input Patient scheduled for CT. Await results Continue Levaquin: 750 mg daily Obtain vitamin D level and parathyroid hormone Home meds as appropriate. Hold vitamin D Monitor labs GI prophylaxis: Pepcid 20 mg by mouth twice a day DVT prophylaxis: Coumadin Monitor vital signs and address as appropriate Discharge planning: Patient to return home when stable Further recommendations pending patient's course Nurse practitioner note has been reviewed by physician. Signing provider agrees with the documented findings, assessment, and plan of care. <Indio Alba Jr - Last Filed: 06/03/17 13:46> Physical Exam Osteopathic Statement: *. No significant issues noted on an osteopathic structural exam other than those noted in the History and Physical/Consult. Vitals: Vital Signs Temp Pulse Resp BP Pulse Ox 06/03/17 06:41 96.9 F L 100 20 130/71 93 L 06/02/17 22:31 98.2 F 97 17 113/66 97 06/02/17 20:54 97 06/02/17 16:00 104 H 16 06/02/17 15:00 98.5 F 104 H 16 98/63 97 Intake and Output 06/02/17 06/03/17 06/03/17 22:59 06:59 14:59 Other: # Voids 1 1 # Bowel Movements 1 Results CBC & Chem 7: 06/02/17 11:14 06/02/17 11:14 Labs: Abnormal Lab Results - Last 24 Hours (Table) 06/01/17 06/02/17 06/02/17 Range/Units 13:05 11:14 16:49 POC Glucose (mg/dL) 131 H (75-99) mg/dL Hemoglobin A1c 6.9 H (4.0-6.0) % Vitamin D 25-Hydroxy 25.1 L (30.0-100.0) ng/mL PTH Intact 8.1 L (14.0-72.0) pg/mL 06/02/17 06/03/17 06/03/17 Range/Units 21:51 07:06 11:43 POC Glucose (mg/dL) 184 H 189 H 191 H (75-99) mg/dL Hemoglobin A1c (4.0-6.0) % Vitamin D 25-Hydroxy (30.0-100.0) ng/mL PTH Intact (14.0-72.0) pg/mL Microbiology - Last 24 Hours (Table) 06/01/17 15:16 Blood Culture - Preliminary Blood No Growth after 24 hours 06/01/17 23:50 Gram Stain - Preliminary Sputum
[2017-06-02] MEDS ORDERED: methylPREDNISolone SOD SUCCI 125 MG/2 ML VIAL IV SCH (16:00)
[2017-06-02 16:08] LABS: Vitamin D 25 Hydroxy 25.1 ng/mL (30.0-100.0)
[2017-06-02 16:52] LABS: Glucose,Whole Blood 131 mg/dL (75-99)
[2017-06-02] MEDS: INSULIN ASPART 100 UNIT/ML 1 ML 10 ML VIAL SQ SCH ×2 (17:09→22:09)
[2017-06-02 17:31] LABS: Parathyroid Hormone Intact 8.1 pg/mL (14.0-72.0)
[2017-06-02] MEDS ORDERED: WARFARIN 2.5 MG TAB PO SCH (18:00)
[2017-06-02] MEDS: ATORVASTATIN 10 MG TAB PO SCH ×2 (21:42→23:08)
[2017-06-02] MEDS: PARoxetine 10 MG TAB PO SCH ×2 (21:42→23:07)
[2017-06-02] MEDS: FENOFIBRATE 160 MG TAB PO SCH ×2 (21:43→23:08)
[2017-06-02 21:53] LABS: Glucose,Whole Blood 184 mg/dL (75-99)
[2017-06-03] MEDS ORDERED: methylPREDNISolone SOD SUCCI 125 MG/2 ML VIAL IV SCH (02:00)
[2017-06-03] MEDS: HYDROcodone/APAP 5-325MG 1 EACH TAB PO PRN (06:56)
[2017-06-03 07:09] LABS: Glucose,Whole Blood 189 mg/dL (75-99)
[2017-06-03] MEDS ORDERED: diphenhydrAMINE 50 MG/ML 1 ML VIAL IVP SCH (07:30)
[2017-06-03] MEDS: INSULIN ASPART 100 UNIT/ML 1 ML 10 ML VIAL SQ SCH ×3 (08:35→17:40)
[2017-06-03] MEDS: FAMOTIDINE 20 MG TAB PO SCH (08:36)
[2017-06-03] MEDS: LINAGLIPTIN 5 MG TABLET PO SCH (08:37)
[2017-06-03] MEDS: ATENOLOL 25 MG TAB PO SCH (08:37)
[2017-06-03] MEDS: MAGNESIUM OXIDE 400 MG TAB PO SCH (08:37)
--- NOTE | 2017-06-03 08:46 | CT ---
EXAMINATION TYPE: CT chest w con DATE OF EXAM: 06/03/2017 COMPARISON: NONE HISTORY: Patient complains of difficulty breathing, cough, and history of lung CA. CT DLP: 175.7 mGycm Automated exposure control for dose reduction was used. CONTRAST: CT scan of the chest is performed with IV Contrast, patient injected with 100 mL of Isovue 300. FINDINGS: LUNGS: Right apical mass is smaller in size and currently measures 4.3 x 3.0 cm versus. There are new multiple masses throughout both lung greer totaling approximately 10-12 on the right with the large st nodule at the right lung base measuring 3.2 cm. One of the nodules demonstrates cavitation. There is also moderate right-sided pleural effusion and pleural studding. Within the left lung there are al so multiple new pulmonary nodules totaling approximately 10 in number with the largest noted at the l eft lateral lung base measuring 2.1 cm. No sizable pleural effusion noted. Radiation therapy changes upper lobes. MEDIASTINUM: There are no greater than 1 cm hilar or mediastinal lymph nodes. No pericardial effusi on is seen. Thoracic aorta is of normal caliber. The heart is mildly enlarged. UPPER ABDOMEN: Left adrenal nodule measuring 1.1 cm. Splenic calcification. IVC filter. Cholecystecto my clips. OTHER: Loss of height involving T3 of uncertain etiology. Finding is stable. IMPRESSION: 1. Right apical mass is smaller in size although does persist. There are new multiple bilateral pulmo nary nodules compatible with metastatic disease. One lesion right lower lobe demonstrates cavitation. 2. Moderate right-sided pleural effusion.
[2017-06-03] MEDS ORDERED: VANCOMYCIN TROUGH DUE 1 EACH MISC MISCELLANE ONE (11:00)
--- NOTE | 2017-06-03 11:36 | XR ---
EXAMINATION TYPE: XR shoulder complete RT DATE OF EXAM: 06/03/2017 CLINICAL HISTORY: Right shoulder pain, history of right-sided lung cancer TECHNIQUE: Three views of the right shoulder are obtained. COMPARISON: Same day CT chest study FINDINGS: There is no acute fracture/dislocation evident in the right shoulder. Osseous structures a re demineralized. There is prominent joint space loss glenohumeral joint with some spurring from the inferior medial margin humeral head. There is fairly prominent joint space loss acromioclavicular bob int. Rounded right axillary calcification could reflect calcified lymph node. Visualized lung shows p arenchymal fibrosis with small effusion and scattered suspicious nodules seen better on CT. IMPRESSION: There is no acute fracture or dislocation in the right shoulder.
[2017-06-03 11:52] LABS: Glucose,Whole Blood 191 mg/dL (75-99)
[2017-06-03] MEDS: LEVOFLOXACIN 750 MG TAB PO SCH (12:46)
--- NOTE | 2017-06-03 13:33 | P.PN ---
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 Her original mass was on the left. She subsequently was found to have a right upper lobe mass and furthermore a CAT scan of the chest was done and showed a 3.6 x 4 x 4.4 cm masslike lesion the right upper lobe. I performed a bronchoscopy on this patient. I was unable to reach the right upper lobe. Examination of the left side showed a vague lesion obstructing the lingular segment however this route returner to be a benign finding and there was no evidence of malignancy, probably a post radiation scar. The patient however does not have it final diagnosis yet. One other concern is that the patient has history of vocal cord paralysis for which she has placed a implant many years back. Following the bronchoscopy the patient had significant stridorous breathing for which she had to be bagged for almost 20-30 minutes and ultimately her pulmonary status stabilized and the patient did not had to be reintubated. The concern of postanesthesia upper airway obstruction is quite high in this patient based on my findings. The cords are still somewhat weak and in a adducted position. A pulmonary function test was done today and the patient's FEV1 is 76% of predicted. Total lung capacities 85% and diffusion capacity 68%. There may be some flattening of the expiratory arm and the respiratory arm of the flow volume loop curve which could be potentially related to the vocal cords partial paralysis. In follow-up, the patient was referred to interventional radiology for a fine-needle aspirate of the right upper lobe mass. The results came back positive for squamous cell carcinoma. The disease was locally advanced non-small cell lung cancer. Based on the fact that the mass itself with extending to the mediastinum and the probably is considered to be stage IIIa. I did not think she'll be a good candidate for surgical resection. She had already taken radiation therapy in the past. Based on her previous history of adenocarcinoma of the lung and I'm not sure if she is going to be able to handle some more radiation therapy. We will discuss the chemotherapy regimen versus target therapy with Dr. Cardona. The patient seeked a second opinion through Dr. Bean at [facility]. Based on that evaluation, the patient was started on systemic chemotherapy. She was not found to be a candidate for immunotherapy based on Dr. Bean's evaluation. She received regular systemic chemotherapy. A follow-up CAT scan was done on any showed significant reduction in the right upper lobe lesion and it used to measure 4.2 with centimeters in its largest dimension and is currently down to 1.4 cm and there is some mild metabolic activity within the lesion. There is 2 other nodules measuring only 8-9 mm in size in the LLLt lung base significance of these are not known, and abnormal soft tissue mass along the mediastinum showed a similar appearance compared to the previous imaging. Yesterday, the patient presented emergency department because of new onset pain across her chest mainly over the right lateral chest area and some in the left lateral chest area along with some increased cough congestion. No significant sputum production. No hemoptysis. No fever chills or night sweats. The chest x-ray was done and again there was a right upper lobe opacity. Nevertheless there was some no other lesions on the left which raised further suspicion for tumor progression. The patient is currently resting comfortably in bed. No altered mentation. 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 She is currently on antibiotics. No altered mentation. No falls. No other complaints otherwise for now. Her current white cell count is at 7.5. Influenza screen was negative. She is on long-term and to coagulation with warfarin regarding previous history of pulmonary embolism. She is on Chauncey for pain control. INR was therapeutic at time of admission. On 06/03/2017 patient seen in follow-up. Chest from this morning was reviewed, and shows right apical mass small size although does persist. But there were new multiple bilateral pulmonary nodules compatible with metastatic disease. There was a cavitary lesion within the right lower lobe area and this moderate size right pleural effusion seen. The patient is fairly comfortable at rest, currently on room air, with O2 sat at 93%. Afebrile, vital signs stable. Lung sounds positive for diminished lung sounds over right lower lobe. The option of joining the right pleural effusion was given to the patient, however the patient is currently on Coumadin, and her INR from 06/01/2017 was noted to be at 2.8. Today's calcium is noted to be at 10.8. Patient's complaining of persistent right upper shoulder pain, we will obtain a x-ray of the right shoulder to rule out metastasis to the bone. Otherwise she remains stable, and would like to go home today, as patient is scheduled for a PET scan tomorrow on 06/04/2017. This CT chest demonstrated progression of metastatic disease, and the patient will follow up with medical oncology in regards to further plan of care. Objective - Vital Signs Vital signs: Vital Signs Temp 96.9 F L 06/03/17 06:41 Pulse 100 06/03/17 06:41 Resp 20 06/03/17 06:41 BP 130/71 06/03/17 06:41 Pulse Ox 93 L 06/03/17 06:41 Intake & Output 06/02/17 06/03/17 06/03/17 18:59 06:59 18:59 Intake Total 440 Balance 440 Intake: Oral 440 Other: # Voids 1 # Bowel Movements 1 - Exam General Appearance no diaphoresis, no respiratory distress, speech not interrupted by breaths, no dyspnea, no pallor, not cachectic, well nourished, appears well HEENT no pursed lip breathing, no jugular venous distention, no mucous membrane cyanosis, no perioral cyanosis, mallampati classification: class 1 Chest no barrel chest, no retractions, no sternocleidomastoid muscle contractions, no supraclavicular retractions, no intercostal retractions, no prolonged expiratory wheezing, no decreased air movement, no rhonchi, no hyperinflation, decreased air movement Heart no right ventricular heave, no distant heart sounds, no s3 gallop, (normal ) jugular vein: jugular venous distention: by 0cm, Murmurs: Unspecified Location : Systolic: Grade 4 / IV GI bowel sounds: hyperactive (borborygmi), bowel sounds: diminished or absent Extremities no cyanosis, no clubbing, no edema Neurologic no decreased mental status, no somnolence, no confusion General Appearance normal, (normal) normal except as noted - Labs CBC & Chem 7: 06/02/17 11:14 06/02/17 11:14 Labs: Abnormal Lab Results - Last 24 Hours (Table) 06/01/17 06/02/17 06/02/17 Range/Units 13:05 11:14 16:49 POC Glucose (mg/dL) 131 H (75-99) mg/dL Hemoglobin A1c 6.9 H (4.0-6.0) % Vitamin D 25-Hydroxy 25.1 L (30.0-100.0) ng/mL PTH Intact 8.1 L (14.0-72.0) pg/mL 06/02/17 06/03/17 06/03/17 Range/Units 21:51 07:06 11:43 POC Glucose (mg/dL) 184 H 189 H 191 H (75-99) mg/dL Hemoglobin A1c (4.0-6.0) % Vitamin D 25-Hydroxy (30.0-100.0) ng/mL PTH Intact (14.0-72.0) pg/mL Microbiology - Last 24 Hours (Table) 06/01/17 15:16 Blood Culture - Preliminary Blood No Growth after 24 hours 06/01/17 23:50 Gram Stain - Preliminary Sputum Assessment and Plan Plan: Assessment: 1 squamous cell carcinoma of the right upper lobe. The patient was diagnosed having a locally advanced squamous cell carcinoma, stage history and the patient completed chemoradiation therapy without any major complication and subsequent PET/CT showed significant reduction the right upper lobe and this was done and February 2017. There was some nonspecific 8-9 mm left lower lobe lesions the significance of which was not known and the patient did not show any significant activity within that area on the PET scan. Nevertheless, the patient is presenting with some skeletal chest wall pain and some increased cough and congestion and the chest x-ray showed new nodular lesions in the left lung and a follow-up CT chest showed progression of the metastatic lung cancer, with no development of new pulmonary nodules, and right lower lobe cavitary lesion. 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 squamous cell carcinoma 3 COPD with a baseline FEV1 of 76% of predicted 4 history of vocal cord paralysis, partial 5 non-small cell lung cancer and the patient was treated with chemoradiation therapy and she has been in remission for more than 5:15 years regarding her non -small cell lung cancer 6 coronary artery disease 7 diabetes mellitus x-ray 8 history of DVT status post IVC filter placement and the patient is on anticoagulation with therapeutic PT/INR 9 hyperlipidemia 10 previous history of GI bleeding 11 coronary artery disease previous coronary stenting 12 degenerative arthritis of the frozen right shoulder, right shoulder to rule out metastatic disease to the bone. Plan: Initially right thoracentesis was offered to the patient, but in view of her increased INR and Coumadin therapy, it was decided not to proceed with thoracentesis. Patient is fairly comfortable, although a bit dyspneic with exertion. Currently on room air, O2 sat 93%. She was advised to contact Dr. Pabon if her dyspnea progresses. Patient has a PET scan scheduled for tomorrow 06/04/2017, CT chest from 06/03/2017 was reviewed, and shows progression of metastatic lung cancer, with development of new pulmonary nodules bilateral lungs, and right lower lobe cavitary lesion. Patient will need follow-up with Dr. Cardona. I performed a history & physical examination of the patient and discussed their management with my nurse practitioner, Cris Hubbard. I reviewed the nurse practitioner's note and agree with the documented findings and plan of care. Lung sounds are diminished over right lower lobe. The findings and the impression was discussed with the patient. I attest to the documentation by the nurse practitioner. Time with Patient: Less than 30
[2017-06-03 14:12] LABS: Basophils % (A) 0 %; Eosinophils % (A) 0 %; HCT 37.5 % (34.0-46.0); HGB 12.2 gm/dL (11.4-16.0); Lymphocytes # (A) 0.3 k/uL (1.0-4.8); Lymphocytes % (A) 3 %; MCH 28.8 pg (25.0-35.0); MCHC 32.5 g/dL (31.0-37.0); MCV 88.5 fL (80.0-100.0); Mean Platelet Volume 6.7; Monocytes # (A) 0.3 k/uL (0-1.0); Monocytes % (A) 2 %; Neutrophils # (A) 10.1 k/uL (1.3-7.7); Neutrophils % (A) 94 %; Platelet Count 313 k/uL (150-450); RBC 4.24 m/uL (3.80-5.40); RDW 13.8 % (11.5-15.5); WBC 10.8 k/uL (3.8-10.6)
[2017-06-03 14:35] VITALS: BP 135/82; PULSE 102; RESP 18; TEMP 97.1
[2017-06-03 14:50] LABS: Calcium 11.3 mg/dL (8.4-10.2); Magnesium 1.7 mg/dL (1.6-2.3); Potassium 5.1 mmol/L (3.5-5.1)
--- NOTE | 2017-06-03 15:12 | P.DS ---
Providers Date of admission: 06/03/17 10:00 Expected date of discharge: 06/03/17 Attending physician: Orestes Nava Consults: 06/01/17 14:14 Consult Physician Stat Consulting Provider: Andres Pabon Consult Reason/Comments: pneumonia, hx lung ca Do you want consulting provider notified?: Yes Primary care physician: [facility] Course: Patient being discharged home in alert stable condition Pertinent Studies: CAT scan of the chest demonstrating new metastatic disease Procedures: None Patient Condition at Discharge: Stable Plan - Discharge Summary Discharge Rx Participant: Yes New Discharge Prescriptions: No Action RX: PARoxetine HCL 30 mg PO HS RX: Pantoprazole Sodium 40 mg PO DAILY RX: Krill/Om-3/Dha/Epa/Phospho/Ast [Railroad-3 Krill Oil 300 mg Sfgl] 1 cap PO DAILY RX: Vit C/E/Zn/Coppr/Lutein/Zeaxan [Preservision Areds 2 Softgel] 1 cap PO BID sitaGLIPtin PHOSPHATE [Januvia] 100 mg PO DAILY RX: Warfarin Sodium 2.5 mg PO DAILY Cholecalciferol [Vitamin D3] 2,000 unit PO DAILY Acetaminophen Tab [Tylenol Tab] 1,000 mg PO Q6HR PRN PRN Reason: Pain Or Fever > 100.5 RX: ALPRAZolam [Xanax] 0.25 mg PO TID PRN PRN Reason: Anxiety HYDROcodone/APAP 5-325MG [[place] 5-325] 1 tab PO Q6H PRN PRN Reason: Pain Nitroglycerin Sl Tabs [Nitrostat] 0.4 mg SUBLINGUAL Q5M PRN PRN Reason: Chest Pain Discharge Medication List RX: PARoxetine HCL 30 mg PO HS 11/27/14 [History] RX: Pantoprazole Sodium 40 mg PO DAILY 11/27/14 [History] RX: Krill/Om-3/Dha/Epa/Phospho/Ast [Railroad-3 Krill Oil 300 mg Sfgl] 1 cap PO DAILY 09/16/15 [History] RX: Vit C/E/Zn/Coppr/Lutein/Zeaxan [Preservision Areds 2 Softgel] 1 cap PO BID 09/16/15 [History] RX: Warfarin Sodium 2.5 mg PO DAILY 09/26/15 [History] sitaGLIPtin PHOSPHATE [Januvia] 100 mg PO DAILY 09/26/15 [History] Cholecalciferol [Vitamin D3] 2,000 unit PO DAILY 10/12/16 [History] Acetaminophen Tab [Tylenol Tab] 1,000 mg PO Q6HR PRN 10/19/16 [History] HYDROcodone/APAP 5-325MG [[place] 5-325] 1 tab PO Q6H PRN 10/19/16 [History] RX: ALPRAZolam [Xanax] 0.25 mg PO TID PRN 10/19/16 [History] Nitroglycerin Sl Tabs [Nitrostat] 0.4 mg SUBLINGUAL Q5M PRN 06/01/17 [History] Follow up Appointment(s)/Referral(s): Indio Alba Jr, [Primary Care Provider] - 1-2 days Andres Pabon MD [STAFF PHYSICIAN] - 1 Week Anival Cardona MD [STAFF PHYSICIAN] - 1 Week (KEEP APPOINTMENT ALREADY SCHEDULED FOR TUESDAY) Pending Studies Pending Results: Patient having repeat PET scan tomorrow as outpatient
[2017-06-03 16:51] LABS: Glucose,Whole Blood 142 mg/dL (75-99)
== END 2017-06-03 18:18 | disposition home or self-care (01) | DRG 181 ==
LOC: EC 12:38 → INTOOBSV 14:17 → OBSVTOIN 14:17 → UNDOADMOB 14:17 → 4MS4W 14:17 → OBSVTOIN 06-03 10:00 → 4MS4W 06-03 10:00
PROVIDERS: ADMIT Family Medicine; ATTEND Family Medicine
DX: C34.11 Malignant neoplasm of upper lobe, right bronchus or lung (principal); C78.02 Secondary malignant neoplasm of left lung; J90 Pleural effusion, not elsewhere classified; E11.9 Type 2 diabetes mellitus without complications; E78.5 Hyperlipidemia, unspecified; E83.52 Hypercalcemia; F17.210 Nicotine dependence, cigarettes, uncomplicated; G47.33 Obstructive sleep apnea (adult) (pediatric); I25.10 Atherosclerotic heart disease of native coronary artery without angina pectoris; Z87.01 Personal history of pneumonia (recurrent); J44.9 Chronic obstructive pulmonary disease, unspecified; K21.9 Gastro-esophageal reflux disease without esophagitis; M19.011 Primary osteoarthritis, right shoulder; Z79.01 Long term (current) use of anticoagulants; Z79.899 Other long term (current) drug therapy; Z80.3 Family history of malignant neoplasm of breast; Z82.49 Family history of ischemic heart disease and other diseases of the circulatory system; Z83.3 Family history of diabetes mellitus; Z86.711 Personal history of pulmonary embolism; Z86.718 Personal history of other venous thrombosis and embolism; Z90.710 Acquired absence of both cervix and uterus; Z92.21 Personal history of antineoplastic chemotherapy; Z92.3 Personal history of irradiation; Z95.5 Presence of coronary angioplasty implant and graft; J38.00 Paralysis of vocal cords and larynx, unspecified; Z86.14 Personal history of Methicillin resistant Staphylococcus aureus infection; Z79.891 Long term (current) use of opiate analgesic; Z88.5 Allergy status to narcotic agent; Z88.8 Allergy status to other drugs, medicaments and biological substances; Z91.041 Radiographic dye allergy status
CPT/HCPCS: 36415; 71046; 71260; 80048; 80053; 81003; 82306; 83036; 83690; 83735; 83880; 83970; 84484; 85025; 85610; 85730; 87040; 87070; 87205; 87502; 93005; 94760; 96365; 99285

== ENCOUNTER → 2017-06-04 | Outpatient (CLI) | payer MEDICARE, BC ==
--- NOTE | 2017-06-04 14:20 | PE ---
EXAMINATION TYPE: PET CT fusion skull to thigh DATE OF EXAM: 06/04/2017 COMPARISON: Prior PET/CT February 26, 2017. CT chest June 03, 2017. HISTORY: Lung cancer progress study. Completed chemotherapy and radiation treatment December 2016. TECHNIQUE: Following the intravenous administration of 11.118 mCi of F-18 FDG, whole body images are performed from the skull base to the midthigh. Images are reviewed on the computer in the coronal, axial, and sagittal planes. Reconstructed rotating images are created on independent workstation and reviewed on the computer. A localization and attenuation correction CT is performed in conjunction with the PET scan. SCAN: Subsequent Scan FINDINGS: SKULL BASE AND NECK: Mild hypermetabolic uptake at level of vocal cords with max SUV of 3.79 favors product of phonation. Metastatic disease unlikely. CHEST, MEDIASTINUM, AND HILAR REGION: As suspected on recent CT there is metastatic progression with multiple new and enlarging hypermetabolic nodules identified bilaterally. For reference there is left mid lung nodule measuring 1.5 x 1.4 cm axial image 74 that measured 2 mm on prior PET CT, max SUV is 4.78. For reference there is new or enlarging thick-walled cavitary nodule measuring 2.9 x 2.7 cm an terolateral right lung base axial image 90 where there was 5 mm nodule on prior PET/CT, max SUV is 12 .8. There is an enlarging now fairly moderate size right pleural effusion without abnormal hypermetabolic uptake. There is persistent hypermetabolic masslike consolidation anteriorly in the right lung. Ther e is mediastinal invasion with poor visualization of SVC. Soft tissue is redemonstrated encasing righ t lung bronchus up to level of evelia axial image 71 similar appearance to prior study. ABDOMEN AND PELVIS: Possible new 1 cm hypermetabolic focus anterior right hepatic dome with max SUV 4 .64 axial image [address] correlate. This area can be followed. No additional areas of suspicious hypermetabolic uptake are clearly seen. Areas of uptake along cours e of the iliopsoas muscle are felt to be along course of left ureter. OSSEOUS STRUCTURES: No suspicious hypermetabolic uptake is present. OTHER CT: Large and smaller right axillary calcifications may reflect calcified lymph nodes or dystro phic calcifications. There is coronary artery calcification and/or stents redemonstrated. There is mild cardiomegaly with tiny pericardial effusion. Stomach remains mildly prominent with mild to moderate diffuse wall thickening. There is infrarenal IVC filter redemonstrated. There is moderate atherotic change in abdominal aorta extending into branch vessels. There is prominent calcification medially and inferiorly in spleen redemonstrated. There are diverticula in the left and sigmoid colon. IMPRESSION: As suspected on recent CT there is continued metastatic progression with new and enlargin g bilateral pulmonary nodules.
== END ==
LOC: RADPETMAIN 09:11
PROVIDERS: ATTEND Internal Medicine Hematology & Oncology
DX: Z92.21 Personal history of antineoplastic chemotherapy (principal); C78.02 Secondary malignant neoplasm of left lung; C78.01 Secondary malignant neoplasm of right lung; Z92.3 Personal history of irradiation
CPT/HCPCS: 78815; A9552

== ENCOUNTER → 2017-06-20 | Day surgery (SDC) | payer MEDICARE, BC ==
[2017-06-20 12:00] VITALS: BP 118/69; PULSE 104; RESP 18; TEMP 97.7
--- NOTE | 2017-06-20 12:58 | XR ---
EXAMINATION TYPE: XR chest 1V portable DATE OF EXAM: 06/20/2017 COMPARISON: Chest x-ray from [address] June 04, 2017. HISTORY: Metastatic lung cancer status post right-sided thoracentesis TECHNIQUE: Single frontal view of the chest is obtained. FINDINGS: There is no sizable right-sided pneumothorax after right-sided thoracentesis. There is mario kground chronic emphysematous change with scattered metastatic nodules, right suprahilar masslike con solidation or neoplasm and scattered areas of scarring and/or atelectasis all redemonstrated. The ca rdiac silhouette size is within normal limits. The osseous structures are demineralized. Degenerati ve change right glenohumeral joint is noted. Cholecystectomy clips are seen. Calcified right axillary lymph nodes are redemonstrated. IMPRESSION: No sizable pneumothorax after right-sided thoracentesis. Chronic emphysematous change wi th metastatic lung carcinoma and scattered areas of scarring and/or infiltrate all redemonstrated.
--- NOTE | 2017-06-20 15:50 | PCN ---
PROCEDURE NOTE Indication Pleural effusion. Site: Right side. A time-out was completed verifying correct patient, procedure, site, positioning , and implant (s) or special equipment if applicable. Ultrasound guidance was not used and appropriate fluid pocket was identified and marked. Patient was positioned, prepped and draped in usual sterile fashion. Lidocaine was used to anesthetize the area. A Thoracentesis catheter was introduced into the pleural space and fluid was removed. Blood loss was none. A chest x-ray was ordered to evaluate for pneumothorax. Total Fluid Removed 850 mL Color of Fluid Turbid dark yellowish pleural effusion. Fluid was/was not sent for appropriate laboratory tests. Patient tolerated the procedure well and there were no complications. No complications. No pneumonias. MMODL / IJN: [id number] /
== END ==
LOC: PROCWHC3 11:44
PROVIDERS: ATTEND Internal Medicine Critical Care Medicine
DX: J91.8 Pleural effusion in other conditions classified elsewhere (principal); C34.11 Malignant neoplasm of upper lobe, right bronchus or lung; Z92.21 Personal history of antineoplastic chemotherapy; E11.9 Type 2 diabetes mellitus without complications; Z79.84 Long term (current) use of oral hypoglycemic drugs; Z87.891 Personal history of nicotine dependence; E78.5 Hyperlipidemia, unspecified; E83.42 Hypomagnesemia; E83.52 Hypercalcemia; J44.9 Chronic obstructive pulmonary disease, unspecified; Z86.718 Personal history of other venous thrombosis and embolism; I25.10 Atherosclerotic heart disease of native coronary artery without angina pectoris; G47.30 Sleep apnea, unspecified; J38.02 Paralysis of vocal cords and larynx, bilateral; Z95.5 Presence of coronary angioplasty implant and graft; Z88.5 Allergy status to narcotic agent; Z79.899 Other long term (current) drug therapy; Z88.8 Allergy status to other drugs, medicaments and biological substances; Z91.048 Other nonmedicinal substance allergy status
CPT/HCPCS: 71045; 32554; J2001; 88108; 88305; 88341; 88342

== ENCOUNTER → 2017-08-04 | Outpatient (CLI) | payer MEDICARE, BC ==
[2017-08-04 13:18] LABS: Blood Urea Nitrogen 22 mg/dL (7-17)
--- NOTE | 2017-08-04 16:34 | CT ---
EXAMINATION TYPE: CT ChestAbdPelvis w con DATE OF EXAM: 08/04/2017 INDICATION: Lung cancer; Suspect Mets COMPARISON: NONE CT DLP: 1548 mGycm CONTRAST: Performed with Oral Contrast and with IV Contrast, patient injected with 100 ml mL of Isovue 300. TECHNIQUE: Axial images at 5 mm thick sections. Reconstructed images in the coronal plane. Delayed images through the kidneys. FINDINGS: CT CHEST: Small nodularity within the anterior right breast appears to been present previously. Scree barbara mammography should be performed on schedule. Diagnostic mammography be performed for suspicious palpable abnormalities. Portion of the thyroid visualized is normal. There are multiple scattered lung nodules present. Lung masses in the right upper lung field and supr ahilar region. Small right pleural effusion is present. Infrahilar lung mass is present on the right. Multiple lung nodules and masses are at the right lung base. Lithographic Photographer measurements were obtain ed over lung masses. There is been interval enlargement of the mass is. More obvious example could be along the right lateral margin series 3 image 32 with an AP dimension of 4.5 cm which previously andre sured 1.8 cm. The previous measurement lung mass in the anterior right upper lobe measured 3.0 x 4.3 cm. This has increased in size to 2.9 cm x 5.8 cm. Left upper lobe mass measures 1.8 cm which measure 1.4 cm previously. Series 3 image 14. Pulmonary fibrosis or radiation fibrosis at the medial left ap ex. There is likely some soft tissue invasion into the mediastinum. Enlarged lymphadenopathy however is not readily apparent. The ascending aorta diameter at the level of the main pulmonary artery is 2.8 cm. The main pulmonary artery diameter at the bifurcation is 2. cm. CT ABDOMEN:Stomach may be diffusely thickened through the cardia and fundus. Clinical correlation is recommended. Study has limited oral contrast and area is not well evaluated. Liver: No discrete mass is evident Spleen: Calcified granuloma present Pancreas: Atrophic Adrenal glands: The adrenal glands are normal. Gallbladder: Normal Kidneys: No masses are evident. No hydronephrosis is present. No cysts are present. Delayed images were obtained through the kidneys, which remain unremarkable. Aorta: Vascular calcification is within the aorta. Inferior vena cava: Filter is within the inferior vena cava. CT PELVIS: Loops of bowel within the abdomen and pelvis are normal. There are loops of bowel which are incom pletely distended or lack oral contrast limiting their evaluation. Appendix: Not identified Urinary bladder: Normal. Genitourinary structures: Uterus and ovaries are not identified. Osseous structures: No suspicious lytic or sclerotic lesions. IMPRESSIONS: 1. Multiple large pulmonary nodules and masses enlarging from the comparison of 06/03/2017. 2. Evaluation of the stomach is recommended. Based on this examination distention of the stomach with contrast is not evident in thickening through the stomach should be considered. 3. Small right pleural effusion.
== END | disposition home or self-care (01) ==
LOC: RADCTMAIN 12:38
PROVIDERS: ATTEND Internal Medicine Hematology & Oncology
DX: C34.11 Malignant neoplasm of upper lobe, right bronchus or lung (principal); J90 Pleural effusion, not elsewhere classified; Z91.041 Radiographic dye allergy status
CPT/HCPCS: 82565; 84520; 71260; 74177; 36415; Q9967